=== PATIENT | male | born 1955 | race Caucasian/White ===

== ENCOUNTER 2018-11-29 20:23 | Outpatient (REF) | payer MEDICAID, SELFPAY ==
[2018-11-29 21:28] LABS: Abs Immature Grans 0.02 k/cumm (0.0-0.09); Absolute Basophil Count 0.04 k/cumm (0.0-0.2); Absolute Eosinophil Count 1.49 k/cumm (0.0-0.7); Absolute Lymphocyte Count 1.12 k/cumm (1.2-3.4); Absolute Monocyte Count 0.65 k/cumm (0.11-0.7); Absolute Neutrophil Count 4.54 k/cumm (1.2-6.7); Basophils % 0.5; HCT 31.7 % (40.0-50.0); HGB 10.2 g/dL (13.5-17.5); Immature Grans % 0.3; Lymphocytes % 14.2; Mean Corp. HGB Concentration 32.2 g/dL (32.0-36.0); Mean Corpuscular Hemoglobin 26.8 pg (27.0-33.0); Mean Corpuscular Volume 83.4 fL (80-95); Mean Platelet Volume 10.9 fL (8.0-11.0); Monocytes % 8.3; Neutrophils % 57.7; Platelet Count 279 x1000/uL (130-400); RBC Distribution Width 14.7 % (11.8-14.1); White Blood Cell Count 7.86 k/cumm (4.4-10.8)
[2018-11-29 21:35] LABS: Hemoglobin A1C 8.1 % (4.5-6.2)
[2018-11-29 21:42] LABS: ALT 23 U/L (12-78); AST 22 U/L (15-37); Albumin 2.7 g/dL (3.4-5.0); Alkaline Phosphatase 143 U/L (46-116); Anion Gap 7.8 mmol/L (3-11); BUN 34 mg/dL (7-18); Bilirubin, Total 0.2 mg/dL (0.2-1.0); CO2 24.2 mmol/L (21.0-32.0); Calcium 8.8 mg/dL (8.5-10.1); Chloride 103 mmol/L (98-107); Cholesterol 173 mg/dL (50-200); Estimated GFR 17.72 (mL/min/1.73m2); Glucose 332 mg/dL (70-100); HDL Cholesterol 51 mg/dL (40-60); LDL CHOLESTEROL 91 mg/dL (<100); Potassium 5.8 mmol/L (3.5-5.1); Sodium 135 mmol/L (136-145); TSH (W/Ref FT4) 7.57 uIU/mL (0.358-3.74); Total Protein 5.8 g/dL (6.4-8.2); Triglyceride 139 mg/dL (30-150)
[2018-11-29 21:49] LABS: CREATININE 3.51 mg/dL (0.70-1.30)
[2018-11-29 22:07] LABS: FREE T4 1.13 ng/dL (0.76-1.46)
[2018-11-29 22:53] LABS: Diff Comment Diff Reviewed
[2018-11-29 22:54] LABS: RBC Morphology Normal
== END 2018-11-29 20:43 ==
LOC: NCHCN 20:23
PROVIDERS: PCP Internal Medicine; Visit Provider Family Medicine
DX: M62.541 Muscle wasting and atrophy, not elsewhere classified, right hand (principal); R21 Rash and other nonspecific skin eruption; R06.09 Other forms of dyspnea; E11.65 Type 2 diabetes mellitus with hyperglycemia; M62.81 Muscle weakness (generalized)
CPT/HCPCS: 80053; 80061; 83721; 83036; 84439; 84443; 85025

== ENCOUNTER 2019-03-11 14:47 | Outpatient (REF) | payer MEDICAID, SELFPAY ==
[2019-03-11 21:23] LABS: Abs Immature Grans 0.04 k/cumm (0.0-0.09); Absolute Basophil Count 0.02 k/cumm (0.0-0.2); Absolute Eosinophil Count 1.93 k/cumm (0.0-0.7); Absolute Lymphocyte Count 0.88 k/cumm (1.2-3.4); Absolute Monocyte Count 0.62 k/cumm (0.11-0.7); Absolute Neutrophil Count 6.93 k/cumm (1.2-6.7); Basophils % 0.2; Eosinophils % 18.5; HCT 27.3 % (40.0-50.0); HGB 8.5 g/dL (13.5-17.5); Immature Grans % 0.4; Lymphocytes % 8.4; Mean Corp. HGB Concentration 31.1 g/dL (32.0-36.0); Mean Corpuscular Hemoglobin 26.3 pg (27.0-33.0); Mean Corpuscular Volume 84.5 fL (80-95); Mean Platelet Volume 9.9 fL (8.0-11.0); Neutrophils % 66.5; Platelet Count 357 x1000/uL (130-400); RBC 3.23 m/cumm (4.50-6.00); RBC Distribution Width 14.4 % (11.8-14.1); White Blood Cell Count 10.42 k/cumm (4.4-10.8)
[2019-03-11 21:33] LABS: ALT 14 U/L (16-63); AST 18 U/L (15-37); Alkaline Phosphatase 131 U/L (46-116); Anion Gap 11.7 mmol/L (3-11); BUN 38 mg/dL (7-18); Bilirubin, Total 0.1 mg/dL (0.2-1.0); CO2 20.3 mmol/L (21.0-32.0); Calcium 8.3 mg/dL (8.5-10.1); Chloride 108 mmol/L (98-107); Glucose 216 mg/dL (70-100); Potassium 5.7 mmol/L (3.5-5.1); Sodium 140 mmol/L (136-145); Total Protein 5.4 g/dL (6.4-8.2)
[2019-03-11 21:35] LABS: Estimated GFR 17.78 (mL/min/1.73m2)
[2019-03-11 21:58] LABS: Diff Comment Agrees w/ Instrument
[2019-03-11 21:59] LABS: Basophilic Stippling Present; Hypochromasia 1+; Polychromasia Present
[2019-03-12 12:41] LABS: Reticulocyte 1.7 % (0.5-2.4)
[2019-03-13 15:45] LABS: Erythropoietin 13.7 mIU/mL (2.6 - 18.5)
== END 2019-03-11 15:07 ==
LOC: NCHCN 14:47
PROVIDERS: PCP Internal Medicine; Visit Provider Specialist/Technologist Athletic Trainer
DX: D64.9 Anemia, unspecified (principal); E11.65 Type 2 diabetes mellitus with hyperglycemia; I10 Essential (primary) hypertension
CPT/HCPCS: 80053; 82668; 85025; 85045

== ENCOUNTER 2019-06-08 05:57 | Emergency (ER) | payer MEDICAID, SELFPAY ==
[2019-06-08] VITALS (56 sets, daily range): BP systolic 83–131; BP diastolic 49–73; PULSE 75–83; RESP 10–20; TEMP 37; O2SAT 96–100
[2019-06-08] MEDS: Normal Saline 1,000 ML 1000 ML IV (06:27)
[2019-06-08] MEDS: Ondansetron 4 MG/2 ML VIAL IVP (06:28)
[2019-06-08 06:32] LABS: Abs Immature Grans 0.05 k/cumm (0.0-0.09); Absolute Basophil Count 0.03 k/cumm (0.0-0.2); Absolute Eosinophil Count 0.44 k/cumm (0.0-0.7); Absolute Lymphocyte Count 1.07 k/cumm (1.2-3.4); Absolute Monocyte Count 0.77 k/cumm (0.11-0.7); Absolute Neutrophil Count 6.17 k/cumm (1.2-6.7); Basophils % 0.4; Eosinophils % 5.2; HGB 13.3 g/dL (13.5-17.5); Immature Grans % 0.6; Lymphocytes % 12.5; Mean Corp. HGB Concentration 30.9 g/dL (32.0-36.0); Mean Corpuscular Hemoglobin 28.3 pg (27.0-33.0); Mean Corpuscular Volume 91.5 fL (80-95); Neutrophils % 72.3; Platelet Count 303 x1000/uL (130-400); RBC Distribution Width 16.1 % (11.8-14.1); White Blood Cell Count 8.53 k/cumm (4.4-10.8)
[2019-06-08 06:46] LABS: ALT 23 U/L (16-63); AST 43 U/L (15-37); Albumin 2.7 g/dL (3.4-5.0); Alkaline Phosphatase 129 U/L (46-116); Anion Gap 9.4 mmol/L (3-11); BUN 15 mg/dL (7-18); Bilirubin, Total 0.3 mg/dL (0.2-1.0); CO2 29.6 mmol/L (21.0-32.0); Calcium 9.9 mg/dL (8.5-10.1); Chloride 100 mmol/L (98-107); Estimated GFR 21.24 (mL/min/1.73m2); Glucose 186 mg/dL (74-106); Lipase 207 U/L (73-393); Sodium 139 mmol/L (136-145); Total Protein 7.4 g/dL (6.4-8.2)
--- NOTE | 2019-06-08 07:05 | NUR.NOTE ---
Nursing Note: assumed primary care of this patient. first contact with this patient pt denies any needs at this time.
--- NOTE | 2019-06-08 07:17 | W.ED.GENAD ---
Discharge Plan Disposition Patient Disposition: HOME Condition: Stable Discharge Details Chief Complaint: Nausea/Vomit/Diar Clinical Impression: Vomiting and diarrhea Primary Care Provider: Stan Lopez ED Provider: Trisha Smyth Home Meds and New Rx's Prescriptions: Continued silver sulfadiazine [Silvadene] 1 % Cream 1 applic TOPICAL BID RF: 0 bupropion HCl [Wellbutrin SR] 150 mg Tablet Sustained-Release 12 Hr 150 mg PO DAILY RF: 0 metronidazole [Flagyl] 500 mg Tablet 500 mg PO TID RF: 0 levothyroxine 125 mcg Tablet 125 mcg PO DAILY RF: 0 ergocalciferol (vitamin D2) [Vitamin D2] 50,000 unit Capsule 50,000 unit PO DAILY RF: 0 levofloxacin [Levaquin] 750 mg Tablet 750 mg PO DAILY RF: 0 senna 8.6 mg Capsule 8.6 mg PO DAILY RF: 0 Levemir U-100 Insulin 100 unit/mL Solution 1 unit SUBCUT DIRECTED RF: 0 Januvia 25 mg Tablet 25 mg PO DAILY RF: 0 Eliquis 5 mg Tablet 5 mg PO BID RF: 0 Discharge Instructions Instructions: Acute Nausea and Vomiting (ED), Acute Diarrhea (ED) Additional Instructions: Drink plenty of fluids and get plenty of rest. Take the Compazine as needed directed for nausea and vomiting. Take Imodium sparingly if needed for persistent diarrhea otherwise you may have to let the diarrhea run its course. It is possible that the vomiting and diarrhea is due to the 2 antibiotics you are taking Levaquin and Flagyl for your foot osteomyelitis. You could consider taking probiotics or eating yogurt to help with the diarrhea. Follow-up with your primary care doctor within the next week for reevaluation. Return to the emergency department if you develop any worsening or new concerning symptoms. Discharge Data Discharge Date/Time-TO BE ENTERED AT DEPARTURE: 06/08/19 12:15 Discharge Physician: Trisha Smyth Medical Decision Making <Case Walters DO - Last Filed: 06/08/19 23:07> This is a 63-year-old male with a past medical history of renal failure, dialysis on Monday//Monday, history of diabetes, previous abdominal and ventral hernia surgeries, who presents today for evaluation of nausea and vomiting starting at 5 PM last night. Physical exam demonstrates an obese male with a firm ventral hernia which he states is unchanged. Relatively nontender. Abdomen exam is otherwise unremarkable. Patient is slightly hypotensive however paramedics from [facility] state they know him well and this is very common for him. No other significant abnormalities on exam. Differential is broad but includes pancreatitis, viral GI bug, or complication with ventral hernia. We will rehydrate, get CT scan to evaluate for acute process, and reassess. With no symptoms of chest pain, shortness of breath, tearing sensation in his chest, his signs and symptoms are inconsistent with an acute cardiac pathology. 7:27 AM Patient's updated med list that we are able to get from [facility] does demonstrate that he is on Levaquin, Flagyl, and Eliquis. <Trisha Smyth, - Last Filed: 06/08/19 15:10> 0800 --please see Dr. Walters's note for initial presentation and plan. 63-year-old male with a history of end-stage renal disease on dialysis, diabetes, hypertension, hyperlipidemia, left BKA who presented to the ED for vomiting, abdominal pain and diarrhea since yesterday. Had 2 episodes of vomiting which have been clear. Multiple episodes of watery brown diarrhea. He also admits to periumbilical abdominal pain since yesterday and a firm ventral abdominal mass which he states is chronic for 20 years but is more firm than usual since yesterday. Denies fever. Last received dialysis on and is due today. Case endorsed to follow-up on CT imaging. Labs reviewed and note a normal white blood cell count and electrolytes. Renal function at baseline. Lipase within normal limits. Patient had one low BP on arrival but has had stable vital since then. Patient has an approximately 9 x 12 cm indurated central abdominal mass without erythema, fluctuance or significant tenderness. Remainder of abdomen is soft and nondistended. 0840 --CT report notes a periumbilical anterior abdominal wall fluid collection with a well-defined wall measuring 9 x 14 x 1 which appears chronic. There is also a soft tissue density extending from the rectum through coccyx sacrum and lumbar spine which is concerning for fistula or abscess. No small bowel obstruction. Patient has diffuse skin breakdown extending from lumbar spine to proximal thighs posteriorly with areas of excoriation but no obvious open tract or drainage noted. There does not seem to be any significant erythema consistent with cellulitis. Rectal exam notes normal rectal tone with watery brown stool. 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 Case discussed with Dr. Melendez - She reviewed the CT and does note a large fluid collection posteriorly extending from the rectum to spine. She recommends further evaluation by [facility] surgery due to patient's chronic medical problems and need for dialysis. 1010 --Case discussed with [facility] general surgery who reviewed CT images -do not see any indication for surgical intervention of rectal fluid collection. States that if it was an abscess, patient likely would not have been able to tolerate the digital exam. 1045 -- Patient had 2 readings of low BP 80s/40s again after fluids. Case discussed with hospitalist from [facility], but at this time BP improved and discussion with general surgery and hospitalist agreed that in setting of normal labs and fluid responsive BP, may be due to diarrhea. Suspect vomiting and diarrhea may be due to his Levaquin and Flagyl which she is taking for his right heel osteomyelitis. Right heel wound inspected and does not appear acutely infected. His right leg Unna boot dressing was replaced here. Patient had minimal stooling here in ED but no significant diarrhea to obtain stool sample. Case discussed with and she feels comfortable with patient going home. We will send patient to dialysis for 12 PM today. is advised that if patient develops any worsening or new concerning symptoms, he should return immediately to the emergency department. Patient requested dose of Imodium here for his diarrhea. He was advised to limit Imodium at home and to let the diarrhea run its course. We will send home with a few tablets of Zofran to use as needed. HPI <Case Walters DO - Last Filed: 06/08/19 23:07> General Date/Time Provider Initiated Documentation: 06/08/19 05:58. HPI Narrative: This is a 63-year-old male who is a notably poor historian with past medical history of chronic renal failure, diabetes, previous abdominal hernia and surgeries, dialysis on Monday//Monday, who presents by [facility] for evaluation of diarrhea and vomiting. Patient states that starting at 5 PM this evening he has had mild abdominal nausea achiness, in conjunction with 1 or 2 episodes of diarrhea and 2 episodes of vomiting. He denies any chest pain, fever, chills. He denies any other sick contacts. He denies any aggravating or relieving factors. He does state that he thinks he may be on an antibiotic, but does not know what it is. He denies any other complaints or modifying factors. Related Data Home Medications Medication Instructions Recorded Confirmed Eliquis 5 mg PO BID 06/08/19 06/08/19 Januvia 25 mg PO DAILY 06/08/19 06/08/19 Levemir U-100 Insulin 1 unit SUBCUT DIRECTED 06/08/19 06/08/19 bupropion HCl [Wellbutrin SR] 150 mg PO DAILY 06/08/19 06/08/19 ergocalciferol (vitamin D2) 50,000 unit PO DAILY 06/08/19 06/08/19 [Vitamin D2] levofloxacin [Levaquin] 750 mg PO DAILY 06/08/19 06/08/19 levothyroxine 125 mcg PO DAILY 06/08/19 06/08/19 metronidazole [Flagyl] 500 mg PO TID 06/08/19 06/08/19 senna 8.6 mg PO DAILY 06/08/19 06/08/19 silver sulfadiazine [Silvadene] 1 applic TOPICAL BID 06/08/19 06/08/19 Allergies Allergy/AdvReac Type Severity Reaction Status Date / Time pravastatin Allergy Intermediate Myalgias Unverified 06/08/19 07:36 General Stated Complaint: Nausea/Vomit/Diar DANIELE: 3 Review of Systems <Case Walters DO - Last Filed: 06/08/19 23:07> All systems reviewed & are unremarkable except as noted in HPI and below PFSH <Case Walters DO - Last Filed: 06/08/19 23:07> Social History Smoking/Tobacco Use Status: Current every day Drug use: Never Do you feel safe at home: Yes Exam <Case Walters DO - Last Filed: 06/08/19 23:07> Narrative Exam Narrative: 1.Const: appearing stated age 2.Eyes: PERRL, no conjunctival injection, and symmetrical lids. 3.ENT: Atraumatic external nose and ears. dry MM. Neck: Symmetric, trachea midline, No thyromegaly. 4.CVS: +S1/S2, No murmurs or gallops. Peripheral pulses 2+ and equal in all extremities. Brisk capillary refill in all extremities. 5.RESP: Unlabored respiratory effort. Clear to auscultation bilaterally. No wheezes rales or rhonchi 6.GI: Diffuse large abdomen, central firm hernia in the ventral aspect is present. Nontender on palpation though. Mild generalized achiness throughout. Patient is stooled on. No redness, no warmth. 7.MSK: Left lower extremity amputation. No evidence of trauma. No other abnormality. 8.Skin: Warm, Dry. No rashes or lesions. 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 Sensation grossly intact, no focal neurologic deficits. 10.Psych: (AAO) x3. Appropriate mood and affect Course <Case Walters DO - Last Filed: 06/08/19 23:07> Vital Signs Vital signs: Vital Signs Temperature 37.0 C 06/08/19 06:20 Pulse 77 06/08/19 06:20 Respiratory Rate 18 06/08/19 06:20 Blood Pressure 84/54 L 06/08/19 06:20 Pulse Oximetry 98 06/08/19 06:20 Temperature 37.0 C 06/08/19 06:20 Temperature Source Temporal Artery Scan 06/08/19 06:20 Pulse 75 06/08/19 07:06 Pulse 80 06/08/19 07:10 Respiratory Rate 16 06/08/19 07:10 Respiratory Effort 06/08/19 06:20 Blood Pressure 112/66 06/08/19 07:06 Blood Pressure Mean 78 06/08/19 07:06 Pulse Oximetry 100 06/08/19 07:10 Oxygen Delivery Method Room Air 06/08/19 06:20 Oxygen Flow Rate 0 06/08/19 06:20 Pain Level 3 06/08/19 06:20 Lab/Test Results Lab/Test Results: Laboratory Tests Range/Units 06/08/19 06/08/19 06:20 06:20 WBC (4.4-10.8) k/cumm 8.53 RBC (4.50-6.00) m/cumm 4.70 Hgb (13.5-17.5) g/dL 13.3 L Hct (40.0-50.0) % 43.0 MCV (80-95) fL 91.5 MCH (27.0-33.0) pg 28.3 MCHC (32.0-36.0) g/dL 30.9 L RDW (11.8-14.1) % 16.1 H Plt Count (130-400) x1000/uL 303 MPV (8.0-11.0) fL 10.0 Immature Gran % 0.6 Neutrophils % 72.3 Lymphocytes % 12.5 Monocytes % 9.0 Eosinophils % 5.2 Basophils % 0.4 Absolute Neutrophils (1.2-6.7) k/cumm 6.17 Absolute Lymphocytes (1.2-3.4) k/cumm 1.07 L Absolute Monocytes (0.11-0.7) k/cumm 0.77 H Absolute Eosinophils (0.0-0.7) k/cumm 0.44 Absolute Basophils (0.0-0.2) k/cumm 0.03 Sodium (136-145) mmol/L 139 Potassium (3.5-5.1) mmol/L 4.0 Chloride (98-107) mmol/L 100 Carbon Dioxide (21.0-32.0) mmol/L 29.6 Anion Gap (3-11) mmol/L 9.4 BUN (7-18) mg/dL 15 Creatinine (0.70-1.30) mg/dL 3.00 H Estimated GFR/1.73 m2 (mL/min/1.73m2) 21.24 Glucose (74-106) mg/dL 186 H Calcium (8.5-10.1) mg/dL 9.9 Total Bilirubin (0.2-1.0) mg/dL 0.3 AST (15-37) U/L 43 H ALT (16-63) U/L 23 Alkaline Phosphatase (46-116) U/L 129 H Total Protein (6.4-8.2) g/dL 7.4 Albumin (3.4-5.0) g/dL 2.7 L Lipase (73-393) U/L 207 Sign Out <Case Walters DO - Last Filed: 06/08/19 23:07> Sign Out Data: Sign Out Comment: Pending CT scan results reassessment and disposition Last updated by Case Walters DO at 06/08/19 08:17
[2019-06-08] MEDS: Omnipaque 350 MG/ML 100 ML BTL IJ (07:27)
--- NOTE | 2019-06-08 07:35 | DI.CT_ITS ---
EXAM: CT ABDOMEN PELVIS W CLINICAL HISTORY: vomiting, tense hernia, cant tolerate PO TECHNIQUE: 100 cc Omnipaque 350 IV. COMPARISON: LEFT RIBS TO INCLUDE CXR from 06/16/2014 FINDINGS: There is a moderate size right pleural effusion and adjacent mild left basilar atelectasis. Pleural calcifications are seen. There is mild bilateral gynecomastia. The heart size is normal. There is no pericardial effusion. There is some fluid in the lower esophagus. There is no abnormal gastric distension. Anastomotic sutures are seen in the distal small bowel. The appendix appears normal. T here is mild nonspecific small bowel dilatation. Some fluid is seen in the colon. There is no abnor mal colonic distension. The liver, spleen and adrenals are unremarkable. The pancreas is mildly atr ophic. There is a small amount of sludge or stones in the gallbladder. There is no gallbladder wall thickening, or abnormal distension. There is an atrophic right kidney. 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 The left kidney shows mild atrophy. There is no evidence of hydronephrosis. The urinary bladder is nearly empty. There is a question of mild bladder wall thickening. There is hardware in the pubic symphysis related to previous fracture. There is also some deformity of the region of the right SI joint. There is an old-appearing fracture of L3. In the paraumbilical region, in the subc utaneous fat, there is a rounded collection with a thick wall and some calcifications. It measures 9 by 14 by 12 cm. There is a smaller right-sided collection showing peripheral calcification. There is no evidence of an abdominal wall hernia. Within the mesentery, there is a peripherally calcified low-density lesion. There is an irregular collection in the posterior subcutaneous fat, posterior to the lower lumbar spine and sacrum. There is apparent connection with the lower rectum. It measures 6.5 x 3.1 x 10.6 cm. There is marked thickening of the wall. The findings could represent an absces s collection with connection to the rectum. There is no visible extension in into the spine. An donna tional fluid collection is seen adjacent to the right greater trochanter which also shows thick wall and calcification and has a chronic appearance. IMPRESSION: 1. 9 x 14 x 12 centimeter collection within the Periumbilical subcutaneous fat which could represent an abscess versus chronic collection. There is no evidence of a hernia or bowel obstruction. 2. Retro lumbar subcutaneous collection with thick enhancing wall in connection with the rectum, mariana picious for abscess. 3. Chronic appearing low-density collection near the right greater trochanter.
--- NOTE | 2019-06-08 08:25 | DI.VRAD_ITS ---
PROCEDURE INFORMATION: Exam: CT Abdomen And Pelvis With Contrast Exam date and time: 06/08/2019 7:24 AM Age: 63 years old Clinical history: Patient HX: Vomiting, tense hernia. TECHNIQUE: Imaging protocol: Computed tomography of the abdomen and pelvis with intravenous contrast. Radiation optimization: All CT scans at this facility use at least one of these dose optimization techniques: automated exposure control; mA and/or kV adjustment per patient size (includes targeted exams where dose is matched to clinical indication); or iterative reconstruction. Contrast material: OMNIPAQUE 350; Contrast volume: 100 ml; Contrast route: IV; COMPARISON: CR - LEFT RIBS TO INCLUDE CXR 06/16/2014 11:33:42 AM FINDINGS: Mediastinum: There is fluid within the esophagus. There is a moderate left pleural effusion. Respiratory motion significantly limits evaluation of the lungs. There is bibasilar atelectasis and/or scarring. There is atelectasis adjacent to the left lower lung pleural effusion some of which demonstrate calcification which may be indicative of chronic changes and/or chronic aspiration. Partially visualized catheter within the lower SVC. Liver: Unremarkable. No mass. Gallbladder and bile ducts: No ductal dilatation. Hyperdensity is seen at the gallbladder neck which may represent sludge and/or stones. Pancreas: Unremarkable. No ductal dilation. Spleen: Unremarkable. No splenomegaly. Adrenals: Unremarkable. No mass. Kidneys and ureters: Atrophic right kidney with a 4 mm pelvic stone. Left kidney and ureter are unremarkable. Stomach and bowel: No bowel obstruction. Postsurgical changes of the bowel are seen within the right lower quadrant, likely prior primary anastomosis. There is fluid filling nondilated small bowel. Fluid is seen in the esophagus. There is a well calcified soft tissue mass within the central mesenteric fat with more central fat density and completely calcified wall, likely sequelae of chronic process. Appendix: Likely surgically absent. No secondary findings of appendicitis. Intraperitoneal space: No free air. Vasculature: Mild atherosclerotic calcification of the aorta and its major branches. Lymph nodes: Unremarkable. No enlarged lymph nodes. Bladder: The urinary bladder is somewhat decompressed, making the thickness of the wall difficult to evaluate; however, there may be some mild urinary bladder wall thickening. Reproductive: Calcifications within the prostate. Bones/joints: Extensive fixation metallic hardware at the pubis symphysis limits evaluation of the lower pelvis with metallic artifact. Degenerative changes of the bilateral hips and spine. L3 compression fracture deformity with greater than 50% height loss, age indeterminate. Soft tissues: There is a periumbilical anterior abdominal wall fluid collection with a well-defined wall measuring 9.1 x 14 x 1.2 cm with some of the wall demonstrating calcification which may be indicative of chronicity. There are foci of fat that are non-dependent within the collection. Adjacent to this collection there is a another smaller 2 cm fluid collection with calcified wall, again likely chronic. There is significant abdominal muscular atrophy. Soft tissue density extends from the rectum to the right of the coccyx which then ascends posterior to the sacrum and lumbar spine communicating with a thick walled fluid collection measuring 6.5 x 3.1 x 10.6 cm, concerning for fistulous communication and retrocecal/retro-lumbar subcutaneous abscess. Other findings: Fluid collection lateral to the right greater trochanter with wall calcification, likely sequelae related to chronic trochanteric bursitis. IMPRESSION: 1. No bowel obstruction. Fluid filled small bowel which can be seen with enteritis. 2. Fluid-filled esophagus, moderate left pleural effusion, and adjacent atelectasis demonstrating punctate calcification. Correlate for aspiration. 3. Multiple subcutaneous fluid collections with alejandre containing calcification, all likely chronic. Anterior abdominal wall fluid collection contains foci of fat and measures up to 14 cm. Recommend correlation with prior imaging if available. 4. Retro-lumbar subcutaneous organized fluid collection measuring approximately 10.6 cm in length which communicates with a soft tissue tract recommend followed to the rectum, recommend clinical correlation to exclude rectal fistula. 5. Chronic right trochanteric bursitis. 6. Likely other chronic sequelae or postsurgical changes within the abdomen. 7. The urinary bladder is somewhat decompressed and limits evaluation but there may be some asymmetrical wall thickening. Recommend clinical correlation. 8. Atrophic right kidney. Dictated and Authenticated by: Teddy Castanon MD. Ordering:LYN Willoughby MD
[2019-06-08] MEDS: Normal Saline 500 ML IV (10:37)
[2019-06-08] MEDS: Loperamide 2 MG CAP PO (11:39)
[2019-06-08] MEDS: Prochlorperazine 10 MG TAB 30 MG PO (11:40)
== END 2019-06-08 12:15 | disposition home or self-care (01) ==
PROVIDERS: Student in an Organized Health Care Education/Training Program; Emergency Provider Physician Assistant; PCP Internal Medicine
DX: R11.2 Nausea with vomiting, unspecified (principal); R19.7 Diarrhea, unspecified; R10.33 Periumbilical pain; E11.22 Type 2 diabetes mellitus with diabetic chronic kidney disease; I12.0 Hypertensive chronic kidney disease with stage 5 chronic kidney disease or end stage renal disease; N18.6 End stage renal disease; Z99.2 Dependence on renal dialysis; Z89.512 Acquired absence of left leg below knee
CPT/HCPCS: 36415; 80053; 83690; 96361; 96374; 99285; 74177; 85025; 99284; J2405; J3490

== ENCOUNTER 2020-03-26 13:05 | Emergency (ER) | payer MEDICARE, MEDICAID, SELFPAY ==
[2020-03-26 13:06] VITALS: BP 169/67; PULSE 84; RESP 20; TEMP 36.6; O2SAT 99
--- NOTE | 2020-03-26 13:15 | DI.CT_ITS ---
EXAM: CT HEAD WO CLINICAL HISTORY: seizure. TECHNIQUE: Imaging Protocol: Axial computed tomography images with coronal and sagittal reformatted images were created and reviewed COMPARISON: No exams were available for comparison FINDINGS: There is atrophy and ventricular dilatation somewhat disproportionate for the patient's age. There a re mild white matter changes of small vessel disease in a few small bilateral lacunar infarcts in the basal ganglia. No acute infarct is visible. There is no evidence of hemorrhage or mass. No skull fracture or sinus opacification is seen. The orbits are unremarkable. IMPRESSION: No acute intracranial process. RADIATION DOSE DELIVERED: Total DLP DATA REPOSITORY: All CT scans at this facility are submitted to the National Radiology Data Registry (NRDR) Dose Index Registry (DIR) with the [employer] (A[employer]). RADIATION OPTIMIZATION: All CT scans at this facility use at least one of these dose optimization te chniques: automated exposure control; mA and/or kV adjustment per patient size (includes targeted exa ms where dose is matched to clinical indication); or iterative reconstruction.
--- NOTE | 2020-03-26 13:25 | ED.GENADUL_ITS ---
Discharge Plan Disposition Patient Disposition: HOME Condition: Stable Discharge Details Clinical Impression: Pneumonia, Seizure-like activity Primary Care Provider: Jeyson Padgett ED Provider: Corby Bill Home Meds and New Rx's Prescriptions: New levofloxacin 750 mg tablet 750 mg PO DAILY Qty: 5 RF: 0 Continued lisinopril 5 mg tablet 40 mg PO DAILY RF: 0 atorvastatin 20 mg tablet 10 mg PO HS RF: 0 ferrous gluconate 324 mg (37.5 mg iron) Tablet 324 mg PO DAILY RF: 0 hydroxyzine HCl 25 mg Tablet 25 mg PO BID RF: 0 loratadine 10 mg Tablet 10 mg PO DAILY RF: 0 mirtazapine 15 mg Tablet 15 mg PO HS RF: 0 pantoprazole 40 mg Tablet,Delayed Release (Dr/Ec) 40 mg PO QAM RF: 0 camphor-menthol 0.5-0.5 % Lotion 1 applic TOPICAL TID RF: 0 sevelamer carbonate 800 mg Tablet 800 mg PO TID RF: 0 silver sulfadiazine [Silvadene] 1 % Cream 1 applic TOPICAL BID RF: 0 bupropion HCl [Wellbutrin SR] 150 mg Tablet Sustained-Release 12 Hr 150 mg PO DAILY RF: 0 levothyroxine 125 mcg Tablet 125 mcg PO QAM RF: 0 ergocalciferol (vitamin D2) [Vitamin D2] 50,000 unit Capsule 50,000 unit PO DAILY RF: 0 levofloxacin [Levaquin] 750 mg Tablet 750 mg PO DAILY RF: 0 senna 8.6 mg Capsule 8.6 mg PO BID RF: 0 Levemir U-100 Insulin 100 unit/mL Solution 10 unit SUBCUT QAM RF: 0 Januvia 25 mg Tablet 25 mg PO DAILY RF: 0 Eliquis 5 mg Tablet 5 mg PO BID RF: 0 Discharge Instructions Instructions: Pneumonia (ED) Additional Instructions: follow up with your primary care provider within 1 week for your pneumonia and seizure like activity if you feel more ill, severe pain, difficulty breathing return to the emergency department do not swim/bathe by yourself until cleared by your primary care provider Medical Decision Making 64 yo male with hx of esrd, htn, dm, prior right leg amputation, who comes in from dialysis when he had two episodes where his left arm flexed and he had lateral gaze one lasting one minute then the 2nd lasting 3 minutes. He doesn't remember having any seizure today and has no complaints now other than feeling general fatigue for a day. Denies chest pain, chest pressure, dyspnea, headaches, n/v. He has no focal deficits now, cn II-XII intact , soft nontender abdomen. Based on description suspect focal seizure, will evaluate for electrolyte abnormalities and ct of the head to evaluate for possible mass though unlikely given lack of headache. pt remains stable without symptoms here and feels well. ct head unremarkable and xray shows possible infiltrate on the left which could explain his weakness. He feels well and would like to try outpatient management. He understands importance of f/u with his pcp and return precautions given Differential Diagnosis Differential Diagnosis: seizure, electrolyte disorder Imaging Data Radiologic Study: Attestation: I personally reviewed and interpreted this imaging study as follows: Imaging: X-Ray Radiologist's impression: IMPRESSION: Left pleural effusion and question left lower lobe infiltrate. Radiologic Study #2: Attestation: I personally reviewed and interpreted this imaging study as follows: Imaging: CT Scan Radiologist's impression: no acute findings Lab Data Lab results reviewed: Yes I reviewed the patient's lab results. [facility] General Mode of arrival: ambulatory . Date/Time Provider Initiated Documentation: 03/26/20 13:12 . Limitations to Documentation: no limitations . Information obtained by: patient . History of Present Illness 64 year old M presents to the emergency department with the chief complaint of ?seizure, described as moderate, No relieving factors improve symptom(s), No exacerbating factors reported . Patient did receive the following treatments prior to arrival, none Related Data Home Medications Medication Instructions Recorded Confirmed Eliquis 5 mg PO BID 06/08/19 03/26/20 Januvia 25 mg PO DAILY 06/08/19 06/08/19 Levemir U-100 Insulin 10 unit SUBCUT QAM 06/08/19 03/26/20 bupropion HCl [Wellbutrin SR] 150 mg PO DAILY 06/08/19 03/26/20 ergocalciferol (vitamin D2) 50,000 unit PO DAILY 06/08/19 09/12/19 [Vitamin D2] levofloxacin [Levaquin] 750 mg PO DAILY 06/08/19 06/08/19 levothyroxine 125 mcg PO QAM 06/08/19 03/26/20 senna 8.6 mg PO BID 06/08/19 03/26/20 silver sulfadiazine [Silvadene] 1 applic TOPICAL BID 06/08/19 03/26/20 lisinopril 5 mg tablet 40 mg PO DAILY tab 09/10/19 03/26/20 atorvastatin 10 mg PO HS 03/26/20 03/26/20 camphor-menthol 1 applic TOPICAL TID 03/26/20 03/26/20 ferrous gluconate 324 mg PO DAILY 03/26/20 03/26/20 hydroxyzine HCl 25 mg PO BID 03/26/20 03/26/20 levofloxacin 750 mg PO DAILY #5 tab 03/26/20 loratadine 10 mg PO DAILY 03/26/20 03/26/20 mirtazapine 15 mg PO HS 03/26/20 03/26/20 pantoprazole 40 mg PO QAM 03/26/20 03/26/20 sevelamer carbonate 800 mg PO TID 03/26/20 03/26/20 Previous Rx's Medication Instructions Recorded levofloxacin 750 mg PO DAILY #5 tab 03/26/20 Allergies Allergy/AdvReac Type Severity Reaction Status Date / Time pravastatin Allergy Intermediate Myalgias Unverified 03/26/20 13:15 General Stated Complaint: Seizure DANIELE: 3 Review of Systems All systems reviewed & are unremarkable except as noted in HPI and below Constitutional Constitutional: Denies chills and Denies fever(s) Cardiovascular Cardiovascular: Denies chest pain and Denies dyspnea Respiratory Respiratory: Denies cough and Denies dyspnea Gastrointestinal Gastrointestinal: Denies abdominal pain, Denies nausea and Denies vomiting Musculoskeletal Musculoskeletal: Denies joint swelling [facility] Medical History (Updated 03/26/20 @ 15:04 by Corby Bill MD) Amputation below knee Anemia Candidiasis of skin Cellulitis of lower limb CHF (congestive heart failure) CKD (chronic kidney disease) Degeneration of cervical intervertebral disc Depressive disorder Diarrhea End stage renal disease GERD (gastroesophageal reflux disease) HLD (hyperlipidemia) Hypertension Neuropathy Retention of urine Stasis dermatitis of lower extremity due to chronic peripheral vascular hypertension Type 2 diabetes mellitus Unilateral traumatic amputation of leg below knee with complication Surgical History (Updated 06/24/19 @ 13:06 by Ghada Guillen) History of thoracentesis Status post debridement Social History Smoking/Tobacco Use Status: Current every day Tobacco Type: e-cigarettes Alcohol Intake: former Drug use: Never Do you feel safe at home: Yes Do you feel safe in your relationship?: Yes Exam Const General: no acute distress Orientation: alert HENMT Head: normal to inspection Ears: external ears normal General nose exam: external nose normal Mouth: moist mucous membranes Eyes General: appearance normal, both eyes and all related structures Neck Neck: normal visual inspection Resp Effort & Inspection: normal respiratory effort and able to speak in complete sentences Cardio Rate: regular rate Skin General skin exam: no atrophy Neuro General: patient alert and patient oriented x3 Extrem General: normal to inspection Psych Mental Status: mental status grossly normal Course Vital Signs Vital signs: Vital Signs Temperature 36.6 C 03/26/20 13:06 Pulse 84 03/26/20 13:06 Respiratory Rate 20 03/26/20 13:06 Blood Pressure 169/67 H 03/26/20 13:06 Pulse Oximetry 99 03/26/20 13:06 Temperature 36.6 C 03/26/20 13:06 Temperature Source Skin 03/26/20 13:06 Pulse 84 03/26/20 13:06 Respiratory Rate 20 03/26/20 13:06 Respiratory Effort 03/26/20 13:13 Blood Pressure 169/67 H 03/26/20 13:06 Blood Pressure Position Supine 03/26/20 13:06 Pulse Oximetry 99 03/26/20 13:06 Oxygen Delivery Method Nasal Cannula 03/26/20 13:06 Oxygen Flow Rate 2 03/26/20 13:06 Pain Level 0 03/26/20 13:06
[2020-03-26 13:50] LABS: Abs Immature Grans 0.39 10^3/uL (0.0-0.06); HCT 34.7 % (40.0-50.0); Immature Grans % 2.2; MCH 26.5 pg (27.0-33.0); MCHC 28.8 % (32.0-36.0); MPV 8.7 fL (8.0-11.0); Nucleated RBC 0 %; Platelet Count 309 10^3/uL (130-400); RBC 3.77 10^6/uL (4.36-5.78); RDW 20.4 % (11.8-14.1); RDW-SD 67.7 fL; WBC 17.35 10^3/uL (4.4-10.8)
[2020-03-26 14:02] LABS: ALT 9 U/L (16-63); AST 18 U/L (15-37); Albumin 1.9 g/dL (3.4-5.0); Alkaline Phosphatase 128 U/L (46-116); Anion Gap 7.4 mmol/L (3-11); BUN 29 mg/dL (7-18); Bilirubin, Total 0.4 mg/dL (0.2-1.0); CO2 30.6 mmol/L (21.0-32.0); Calcium 8.1 mg/dL (8.5-10.1); Chloride 99 mmol/L (98-107); ETHANOL BLOOD 4.3 mg/dL (<3); Estimated GFR 13.33 (mL/min/1.73m2); Glucose 220 mg/dL (74-106); Lipase 53 U/L (73-393); Magnesium 1.7 mg/dL (1.8-2.4); Potassium 3.9 mmol/L (3.5-5.1); Sodium 137 mmol/L (136-145); Total Protein 6.2 g/dL (6.4-8.2)
[2020-03-26 14:05] LABS: CREATININE 4.48 mg/dL (0.70-1.30); INR 1.2 (0.9-1.1); PTT Activated 35.1 sec (21.0-31.4); Prothrombin Time 12.3 sec (9.3-11.0)
[2020-03-26 14:13] LABS: Absolute Lymphocyte Count 1.21 10^3/uL (1.2-3.4); Absolute Monocyte Count 0.69 10^3/uL (0.1-0.8); Absolute Neutrophil Count 12.84 10^3/uL (1.2-6.7); Diff Comment Manual Differential
[2020-03-26 14:14] LABS: Anisocytosis 1+; Polychromasia Present
--- NOTE | 2020-03-26 14:16 | DI.RAD_ITS ---
EXAM: XR CHEST 2V PA LATERAL CLINICAL HISTORY: weakness TECHNIQUE: 2D digital imaging was performed. COMPARISON: CR LEFT RIBS TO INCLUDE CXR from 06/16/[address] ABDOMEN PELVIS W from 06/08/[address] HEAD WO from 03/26/2020 FINDINGS: Heart size is normal. There is a small to moderate-sized left pleural effusion. A left pleural effu ananth was seen on the previous CT of the abdomen and pelvis. The right lung is clear. There is a que stion of a left lower lobe infiltrate. IMPRESSION: Left pleural effusion and question left lower lobe infiltrate. DATA REPOSITORY: RADIATION DOSE DELIVERED:
[2020-03-26] MEDS: levoFLOXacin 500 MG, levoFLOXacin 250 MG 750 MG PO (15:27)
[2020-03-26 15:28] VITALS: BP 141/55; PULSE 80; RESP 15; TEMP 36.6; O2SAT 100
== END 2020-03-26 16:30 | disposition home or self-care (01) ==
PROVIDERS: Emergency Provider Emergency Medicine; PCP Family Medicine
DX: J18.9 Pneumonia, unspecified organism (principal); R56.9 Unspecified convulsions; E11.22 Type 2 diabetes mellitus with diabetic chronic kidney disease; N18.6 End stage renal disease; Z99.2 Dependence on renal dialysis; I12.0 Hypertensive chronic kidney disease with stage 5 chronic kidney disease or end stage renal disease
CPT/HCPCS: 80053; 83690; 99284; 70450; 71046; 80320; 83735; 85025; 85610; 85730

== ENCOUNTER 2020-05-30 10:21 | Emergency (ER) | payer MEDICARE, MEDICAID, SELFPAY ==
[2020-05-30] VITALS (23 sets, daily range): BP systolic 160–187; BP diastolic 64–81; PULSE 79–83; RESP 13–17; TEMP 36.6–36.8; O2SAT 95–100
--- NOTE | 2020-05-30 10:28 | DI.CT_ITS ---
EXAM: CT HEAD CERVICAL SPINE WO COMPARISON: CT CT HEAD WO from 03/26/2020 FINDINGS: CT examination of the cervical spine was performed without contrast administration. There are degenerative changes of the cervical spine with multilevel disc space narrowing and promine nt hypertrophic changes of the vertebral endplates and facet joints at multiple levels. There is no evidence of acute cervical spine fracture or dislocation. Intervertebral disc spaces are well maintained. Tracheolaryngeal structures appear intact. No cervical mass or adenopathy. Noncontrast cranial CT was performed. There is moderate generalized cerebral atrophy. Mild patchy areas of decreased attenuation noted in periventricular white matter consistent with microvascular ischemic changes. Small right lacunar inf arct noted. No evidence of acute intracranial hemorrhage, mass effect, or midline shift. No calvarial fracture. The orbital and temporal bone structures appear intact. Visualized mastoid air cells and paranasal sinuses appear clear. IMPRESSION: No evidence of acute cervical spine injury. No evidence of acute intracranial injury. RADIATION DOSE DELIVERED: 1,580.57mGy.cm Total DLP 1,580.57mGy.cm Total DLP DATA REPOSITORY: All CT scans at this facility are submitted to the National Radiology Data Registry (NRDR) Dose Index Registry (DIR) with the [employer] ([employer]). RADIATION OPTIMIZATION: All CT scans at this facility use at least one of these dose optimization te chniques: automated exposure control; mA and/or kV adjustment per patient size (includes targeted exa ms where dose is matched to clinical indication); or iterative reconstruction.
--- NOTE | 2020-05-30 10:30 | RT.EKG_ITS ---
APPROVED REPORT Exam: Resting ECG Patient Location: E HR:82 bpm ECG Measurements Heart Rate 82 AXIS VT 278 P 41 QRSd 109 QRS -67 QT 435 T 30 QTc 507 Conclusion Sinus rhythm...normal P axis, V-rate 60- 99 Prolonged VT interval...VT >220, V-rate 50- 90 LAD, consider left anterior fascicular block...axis(240,-40), S>R II III aVF Prolonged QT interval...QTc >500mS Physician: EKG 10: 38 Rate 82, VT is prolonged at 278, QTc 507, QRS 109, no evidence of STEMI. No other significant abnorm ality.
--- NOTE | 2020-05-30 10:40 | W.ED.GENAD ---
Discharge Plan Disposition Patient Disposition: [facility] Condition: Stable Discharge Details Chief Complaint: AMS/LOC Clinical Impression: Encephalopathy, Hallucination, visual Primary Care Provider: Jeyson Padgett ED Provider: Case Walters Home Meds and New Rx's Prescriptions: No Action lisinopril 5 mg tablet 40 mg PO DAILY RF: 0 atorvastatin 20 mg tablet 10 mg PO HS RF: 0 ferrous gluconate 324 mg (37.5 mg iron) Tablet 324 mg PO DAILY RF: 0 hydroxyzine HCl 25 mg Tablet 25 mg PO BID RF: 0 loratadine 10 mg Tablet 10 mg PO DAILY RF: 0 mirtazapine 15 mg Tablet 15 mg PO HS RF: 0 pantoprazole 40 mg Tablet,Delayed Release (Dr/Ec) 40 mg PO QAM RF: 0 camphor-menthol 0.5-0.5 % Lotion 1 applic TOPICAL TID RF: 0 sevelamer carbonate 800 mg Tablet 800 mg PO TID RF: 0 levofloxacin 750 mg tablet 750 mg PO DAILY Qty: 5 RF: 0 docusate sodium [Stool Softener] 100 mg capsule 1 mg PO BID RF: 0 Triphrocaps 1 mg capsule 1 cap PO DAILY RF: 0 silver sulfadiazine [Silvadene] 1 % Cream 1 applic TOPICAL BID RF: 0 bupropion HCl [Wellbutrin SR] 150 mg Tablet Sustained-Release 12 Hr 150 mg PO DAILY RF: 0 levothyroxine 125 mcg Tablet 125 mcg PO QAM RF: 0 ergocalciferol (vitamin D2) [Vitamin D2] 50,000 unit Capsule 50,000 unit PO DAILY RF: 0 levofloxacin [Levaquin] 750 mg Tablet 750 mg PO DAILY RF: 0 senna 8.6 mg Capsule 8.6 mg PO BID RF: 0 Levemir U-100 Insulin 100 unit/mL Solution 10 unit SUBCUT QAM RF: 0 Januvia 25 mg Tablet 25 mg PO DAILY RF: 0 Eliquis 5 mg Tablet 5 mg PO BID RF: 0 Medical Decision Making 64-year-old male with a past medical history of renal failure on dialysis every Monday and Monday, chronic periumbilical hernia which has been present since 1990, a flutter on , hypertension, hypothyroidism, GERD, depression, high cholesterol, who presents today for evaluation of visual hallucinations. EMS and state that this morning he was confused, and was seeing multiple things that were not there. He denied any auditory hallucinations though. EMS states that this is atypical for him. Aside for the complaint of visual hallucinations he has no other complaints and is notably pleasant otherwise. Currently he is very tena about what he sees, but denies any apprehension or concern because of it. Review of records revealed that he was just recently at [facility], and discharged 3 days ago. At that time he was admitted out of concern for sepsis, temperature was 100.3, however blood cultures returned negative and no infectious etiology could be delineated. He had visual hallucinations at that time as well, but work-up aside for eosinophilia was otherwise unremarkable. He was discharged home without complications. MRI was also performed at [facility] and was unremarkable. No other complaints at this time. No other modifying factors. Physical exam shows no meningeal signs, no asterixis. Is not a candidate for lumbar puncture anyway as he is currently on Eliquis. He does show notable neurologic abnormality with the inability to perform [id number] appropriately, difficulty performing rapid alternating movements bilaterally. And he also does demonstrate clear visual hallucinations. He is afebrile today. Exam shows no meningeal signs, nontender abdomen, clear lungs, vital signs are stable. Per EMS the patient had falling, it is uncertain if he hit his head. With his blood thinner use we will get a CT scan of the head, or laboratory work-up, evaluate for various causes of encephalopathy, monitor closely and reassess. 12:30 PM Laboratory work-up is returned, no white count or bandemia. He still does have mild eosinophilia which she had at [facility]. ESR is elevated at 38, CRP is elevated at 5.95. Ammonia level normal, TSH normal, salicylate and acetaminophen level normal. He has not produced any urine here, as he normally does not produce urine. Creatinine is 5, electrolytes are thankfully stable. BUN is 28. CT scan negative for acute process. Uncertain as to what the exact cause of his encephalopathy is. Does not appear to be overtly infectious at this time. She has no signs of a peritoneal abdomen. We are unable to perform dialysis here, and as the patient is still notably confused and suffering from visual hallucinations I do feel that he is not stable for discharge. We will contact [facility] and he was just discharged 3 days ago from their facility. 1:18 PM I contacted [facility] and discussed the case with Dr. Penaloza and Dr. Rosario, they agree with the assessment and plan. I also do not see an indication for antibiotics at this time as there is no source of infection and no demonstration of sepsis. We will send a blood drug screen.. Patient will be transferred to [facility] for further management dialysis and continued monitoring. I have extensively reviewed the treatment plan with the patient. I have addressed all patient concerns at this time. I have also discussed the plan with the admitting physician and they agree with the current assessment and plan and have agreed to assume responsibility for the patient. All parties demonstrate verbal understanding and agreement with our assessment and plan at this time. I discussed the case with the patient's , answered all questions. She agrees with the plan. At time of transfer the patient was reassessed and continued to demonstrate current medical stability. No signs of acute respiratory distress requiring intubation, hemodynamic instability requiring pressor support, or rapidly declining mental status. The patient is stable for transport. EKG 10: 38 Rate 82, KS is prolonged at 278, QTc 507, QRS 109, no evidence of STEMI. No other significant abnormality. FINDINGS: Brain: Garrison-white matter differentiation is normal. There is no mass effect or midline shift. There is no intra-axial hemorrhage. There is mild to moderate burden of confluent and patchy foci of periventricular and subcortical white matter hypodensities which might reflect chronic microvascular ischemic disease in a patient of this age. There is parenchymal volume loss with compensatory dilatation of ventricles, sulci and basilar cisterns. There is no extra-axial fluid collection. Cerebral ventricles: No ventriculomegaly. Bones/joints: Unremarkable. No acute fracture. Paranasal sinuses: Visualized sinuses are unremarkable. No fluid levels. Mastoid air cells: Visualized mastoid air cells are well aerated. Soft tissues: Unremarkable. IMPRESSION: No acute intracranial abnormality. FINDINGS: Vertebrae: There is no acute fracture or subluxation. Craniocervical junction is normal. There is normal alignment. Vertebral body heights are maintained. Facets are normally located. The reconstruction images of the cervical spine in the sagittal and coronal reformats were not provided. Other bones/joints: Posterior elements are intact. Soft tissues: Unremarkable. Lungs: Lung apices are normal. Other findings: Intervertebral disc spaces are normal. IMPRESSION: 1. No acute fracture or dislocation. 2. No reconstruction images of the cervical spine were provided at the time of dictation. Addendum would be created if reconstructions were provided. Thank you for allowing us to participate in the care of your patient. Dictated and Authenticated by: Luis Eduardo Rodriguez DO 05/30/2020 11:49 AM Eastern Time ([place] & [place]) HPI General Date/Time Provider Initiated Documentation: 05/30/20 10:21. HPI Narrative: 64-year-old male with a past medical history of renal failure on dialysis every Monday and Monday, chronic periumbilical hernia which has been present since 1990, a flutter on Eliquis, hypertension, hypothyroidism, GERD, depression, high cholesterol, who presents today for evaluation of visual hallucinations. EMS and state that this morning he was confused, and was seeing multiple things that were not there. He denied any auditory hallucinations though. EMS states that this is atypical for him. Aside for the complaint of visual hallucinations he has no other complaints and is notably pleasant otherwise. Currently he is very tena about what he sees, but denies any apprehension or concern because of it. Review of records revealed that he was just recently at [facility], and discharged 3 days ago. At that time he was admitted out of concern for sepsis, temperature was 100.3, however blood cultures returned negative and no infectious etiology could be delineated. He had visual hallucinations at that time as well, but work-up aside for eosinophilia was otherwise unremarkable. He was discharged home without complications. MRI was also performed at [facility] and was unremarkable. No other complaints at this time. No other modifying factors. Related Data Home Medications Medication Instructions Recorded Confirmed Eliquis 5 mg PO BID 06/08/19 05/30/20 Januvia 25 mg PO DAILY 06/08/19 05/30/20 Levemir U-100 Insulin 10 unit SUBCUT QAM 06/08/19 05/30/20 bupropion HCl [Wellbutrin SR] 150 mg PO DAILY 06/08/19 05/30/20 ergocalciferol (vitamin D2) 50,000 unit PO DAILY 06/08/19 05/30/20 [Vitamin D2] levofloxacin [Levaquin] 750 mg PO DAILY 06/08/19 05/30/20 levothyroxine 125 mcg PO QAM 06/08/19 05/30/20 senna 8.6 mg PO BID 06/08/19 05/30/20 silver sulfadiazine [Silvadene] 1 applic TOPICAL BID 06/08/19 05/30/20 lisinopril 5 mg tablet 40 mg PO DAILY tab 09/10/19 05/30/20 atorvastatin 10 mg PO HS 03/26/20 05/30/20 camphor-menthol 1 applic TOPICAL TID 03/26/20 05/30/20 ferrous gluconate 324 mg PO DAILY 03/26/20 05/30/20 hydroxyzine HCl 25 mg PO BID 03/26/20 05/30/20 levofloxacin 750 mg PO DAILY #5 tab 03/26/20 05/30/20 loratadine 10 mg PO DAILY 03/26/20 05/30/20 mirtazapine 15 mg PO HS 03/26/20 05/30/20 pantoprazole 40 mg PO QAM 03/26/20 05/30/20 sevelamer carbonate 800 mg PO TID 03/26/20 05/30/20 B complex with C 20-folic acid 1 cap PO DAILY 05/30/20 05/30/20 [Triphrocaps] docusate sodium [Stool Softener] 1 mg PO BID 05/30/20 05/30/20 Previous Rx's Medication Instructions Recorded levofloxacin 750 mg PO DAILY #5 tab 03/26/20 Allergies Allergy/AdvReac Type Severity Reaction Status Date / Time pravastatin Allergy Intermediate Myalgias Unverified 05/30/20 10:34 General Stated Complaint: AMS/LOC DANIELE: 2 Review of Systems All systems reviewed & are unremarkable except as noted in HPI and below PFSH Medical History Amputation below knee Anemia Candidiasis of skin Cellulitis of lower limb CHF (congestive heart failure) CKD (chronic kidney disease) Degeneration of cervical intervertebral disc Depressive disorder Diarrhea End stage renal disease GERD (gastroesophageal reflux disease) HLD (hyperlipidemia) Hypertension Neuropathy Retention of urine Stasis dermatitis of lower extremity due to chronic peripheral vascular hypertension Type 2 diabetes mellitus Unilateral traumatic amputation of leg below knee with complication Surgical History History of thoracentesis Status post debridement Social History Smoking/Tobacco Use Status: Former Tobacco Use Smoking risk assessment performed?: Yes Alcohol Intake: former Drug use: Never Do you feel safe at home: Yes Do you feel safe in your relationship?: Yes Exam Narrative Exam Narrative: 1.Const: Well-nourished, Well-developed, appearing stated age 2.Eyes: PERRL, no conjunctival injection, and symmetrical lids. 3.ENT: Atraumatic external nose and ears. Moist MM. Neck: Symmetric, trachea midline, No thyromegaly. Patient demonstrates good movement of cervical neck. There is no nuchal rigidity, no nuchal tenderness. Patient is able to flex the neck without any difficulty or significant pain. . Patient demonstrates intact dentition with no signs of tooth avulsion or fracture, no signs of jaw deformity, no evidence of a LeFort's fracture, with an intact palate, nose and orbital region. There is no evidence of a nasal septal hematoma. No proptosis. Jaw closes symmetrically. Airway is clear. There is no evidence of raccoon eyes, isidro sign, CSF rhinorrhea, mastoid tenderness, cranial crepitus, hemotympanum, exophthalmos, or hyphema. 4.CVS: +S1/S2, No murmurs or gallops. Peripheral pulses 2+ and equal in all extremities. Brisk capillary refill in all extremities. 5.RESP: Unlabored respiratory effort. Clear to auscultation bilaterally. No wheezes rales or rhonchi 6.GI: Soft, Nontender/Nondistended, No hepatosplenomegaly. Chronic abdominal hernia, firm, nontender, not reducible, review of [facility] records indicate that this is unchanged. 7.MSK: Normocephalic/Atraumatic, amputation of the lower extremity, no signs of infection. 8.Skin: Warm, Dry. No rashes or lesions. 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 Sensation grossly intact, patient is unable to perform [id number] appropriately, he is also unable to perform symmetric rapid alternating movements. Unable to track my fingers for visual exam. 10.Psych: (AAO) x1. Slightly confused, notable visual hallucinations. He states he sees a tractor-trailer truck and a backhoe right neck source, he also believes I am a girl. I am not. Course Vital Signs Vital signs: Vital Signs Temperature 36.2 C L 05/30/20 10:26 Pulse 82 05/30/20 10:26 Respiratory Rate 16 05/30/20 10:26 Blood Pressure 165/64 H 05/30/20 10:26 Pulse Oximetry 97 05/30/20 10:26 Temperature 36.2 C L 05/30/20 10:26 Pulse 82 05/30/20 10:26 Respiratory Rate 16 05/30/20 10:26 Respiratory Effort Non-Labored 05/30/20 10:26 Blood Pressure 165/64 H 05/30/20 10:26 Blood Pressure Position Sitting 05/30/20 10:26 Pulse Oximetry 97 05/30/20 10:26 Oxygen Delivery Method Room Air 05/30/20 10:26 Oxygen Flow Rate 0 05/30/20 10:26 Pain Level 0 05/30/20 10:26 Lab/Test Results Lab/Test Results: 05/30/20 10:36 Blood Blood Culture - Pending 05/30/20 10:36 Blood Blood Culture - Pending
[2020-05-30 11:03] LABS: BE (Venous) 6 mmol/L (-2-3); HCO3 (Venous) 32 mmol/L (23-28); O2 Sat (Venous) 70 %; TCO2 (Venous) 29 mmol/L (24-29); pCO2 (Venous) 53 mmHg (41-51); pH (Venous) 7.38 (7.31-7.41); pO2 (Venous) 37 mmHg
[2020-05-30 11:04] LABS: Abs Immature Grans 0.03 10^3/uL (0.0-0.06); Absolute Basophil Count 0.04 10^3/uL (0.0-0.2); Absolute Eosinophil Count 2.79 10^3/uL (0.0-0.7); Absolute Lymphocyte Count 1.31 10^3/uL (1.2-3.4); Absolute Monocyte Count 0.85 10^3/uL (0.1-0.8); Absolute Neutrophil Count 4.78 10^3/uL (1.2-6.7); Basophils % 0.4; Eosinophils % 28.5; HGB 11.9 g/dL (13.5-17.5); Immature Grans % 0.3; Lymphocytes % 13.4; MCHC 29.8 % (32.0-36.0); MCV 90.9 fL (80-95); MPV 10.1 fL (8.0-11.0); Monocytes % 8.7; Neutrophils % 48.7; Nucleated RBC 0 %; Platelet Count 179 10^3/uL (130-400); RDW 15.7 % (11.8-14.1); RDW-SD 52.5 fL
[2020-05-30 11:05] LABS: Lactate 1.1 mmol/L (0.6-1.4)
[2020-05-30 11:17] LABS: INR 1.1 (0.9-1.1); PTT Activated 31.1 sec (21.0-27.5); Prothrombin Time 10.7 sec (9.3-11.0)
[2020-05-30 11:21] LABS: Anisocytosis 1+; Diff Comment Agrees w/ Instrument
[2020-05-30 11:27] LABS: Magnesium 2.1 mg/dL (1.8-2.4)
[2020-05-30 11:30] LABS: ALT 12 U/L (16-63); AST 22 U/L (15-37); Albumin 2.5 g/dL (3.4-5.0); Alkaline Phosphatase 164 U/L (46-116); Anion Gap 5.8 mmol/L (3-11); BUN 28 mg/dL (7-18); Bilirubin, Total 0.3 mg/dL (0.2-1.0); CO2 31.2 mmol/L (21.0-32.0); Calcium 8.7 mg/dL (8.5-10.1); Chloride 102 mmol/L (98-107); Estimated GFR 11.53 (mL/min/1.73m2); Glucose 181 mg/dL (74-106); Sodium 139 mmol/L (136-145); TSH (W/Ref FT4) 3.72 uIU/mL (0.36-3.74); Total Protein 6.5 g/dL (6.4-8.2)
[2020-05-30 11:37] LABS: Salicylate < 2.8 mg/dL (2.8-20.0)
[2020-05-30 11:39] LABS: Acetaminophen < 2 ug/mL (10-30); ESR 38 mm/hr (1-20)
[2020-05-30 11:40] LABS: C-Reactive Protein 5.95 mg/dL (0.0-0.3)
[2020-05-30 11:44] LABS: CREATININE 5.08 mg/dL (0.70-1.30)
[2020-05-30 11:45] LABS: ETHANOL BLOOD < 3.0 mg/dL (<3)
--- NOTE | 2020-05-30 11:49 | DI.VRAD_ITS ---
PROCEDURE INFORMATION: Exam: CT Head Without Contrast Exam date and time: 05/30/2020 10:58 AM Age: 64 years old Clinical indication: Injury or trauma; Fall; Concussion/head injury; Sprain or strain, cervical ligaments TECHNIQUE: Imaging protocol: Computed tomography of the head without contrast. COMPARISON: CT HEAD WO 03/26/2020 1:53 PM FINDINGS: Brain: Garrison-white matter differentiation is normal. There is no mass effect or midline shift. There is no intra-axial hemorrhage. There is mild to moderate burden of confluent and patchy foci of periventricular and subcortical white matter hypodensities which might reflect chronic microvascular ischemic disease in a patient of this age. There is parenchymal volume loss with compensatory dilatation of ventricles, sulci and basilar cisterns. There is no extra-axial fluid collection. Cerebral ventricles: No ventriculomegaly. Bones/joints: Unremarkable. No acute fracture. Paranasal sinuses: Visualized sinuses are unremarkable. No fluid levels. Mastoid air cells: Visualized mastoid air cells are well aerated. Soft tissues: Unremarkable. IMPRESSION: No acute intracranial abnormality. PROCEDURE INFORMATION: Exam: CT Cervical Spine Without Contrast Exam date and time: 05/30/2020 10:58 AM Age: 64 years old Clinical indication: Injury or trauma; Fall; Concussion/head injury; Sprain or strain, cervical ligaments TECHNIQUE: Imaging protocol: Computed tomography images of the cervical spine without contrast. COMPARISON: CT HEAD WO 03/26/2020 1:53 PM FINDINGS: Vertebrae: There is no acute fracture or subluxation. Craniocervical junction is normal. There is normal alignment. Vertebral body heights are maintained. Facets are normally located. The reconstruction images of the cervical spine in the sagittal and coronal reformats were not provided. Other bones/joints: Posterior elements are intact. Soft tissues: Unremarkable. Lungs: Lung apices are normal. Other findings: Intervertebral disc spaces are normal. IMPRESSION: 1. No acute fracture or dislocation. 2. No reconstruction images of the cervical spine were provided at the time of dictation. Addendum would be created if reconstructions were provided. Dictated and Authenticated by: Luis Eduardo Rodriguez MD. Ordering:LYN Willoughby MD
[2020-05-30 12:15] LABS: Ammonia < 10 umol/L (11-32)
[2020-06-09 12:22] LABS: Amphetamines Negative ng/mL (Cutoff: 20); Barbiturates Negative ng/mL (Cutoff: 50); Benzodiazepines Negative ng/mL (Cutoff: 50); Buprenorphine Negative ng/mL (Cutoff: 1); Cocaine Negative ng/mL (Cutoff: 20); Methadone Negative ng/mL (Cutoff: 25); Methamphetamine Negative ng/mL (Cutoff: 20); Opiates Negative ng/mL (Cutoff: 20); Phencyclidine Negative ng/mL (Cutoff: 10)
== END 2020-05-30 13:43 | disposition short-term general hospital (02) ==
PROVIDERS: Emergency Provider Student in an Organized Health Care Education/Training Program; PCP Family Medicine
DX: R44.1 Visual hallucinations (principal); G93.40 Encephalopathy, unspecified; R70.0 Elevated erythrocyte sedimentation rate; R79.82 Elevated C-reactive protein (CRP); I12.0 Hypertensive chronic kidney disease with stage 5 chronic kidney disease or end stage renal disease; N18.6 End stage renal disease; Z99.2 Dependence on renal dialysis; Z79.01 Long term (current) use of anticoagulants
CPT/HCPCS: 36415; 36416; 80053; 82805; 82962; 85652; 87040; 93005; 99285; 70450; 72125; 80307; 80320; 80329; 82140; 83605; 83735; 84443; 85025; 85610; 85730; 86140; 93010

== ENCOUNTER 2020-06-18 11:20 | Emergency (ER) | payer MEDICARE, MEDICAID, SELFPAY ==
[2020-06-18] VITALS (15 sets, daily range): BP systolic 164–197; BP diastolic 73–145; PULSE 88–92; RESP 15–24; TEMP 36.6; O2SAT 95–100
--- NOTE | 2020-06-18 11:30 | RT.EKG_ITS ---
APPROVED REPORT Exam: Resting ECG Patient Location: E HR:89 bpm ECG Measurements Heart Rate 89 AXIS WY 189 P 36 QRSd 97 QRS -41 QT 382 T 38 QTc 465 Conclusion Sinus rhythm...normal P axis, V-rate 60- 99 Left axis deviation...QRS axis (-30,-90)
--- NOTE | 2020-06-18 11:30 | DI.RAD_ITS ---
EXAM: XR PORTABLE CHEST AP CLINICAL HISTORY: Weakness, confusion. TECHNIQUE: 2D digital imaging was performed. COMPARISON: CR XR CHEST 2V PA LATERAL from 03/26/2020 FINDINGS: There chest leads in place. Heart size upper normal. The mediastinum is not widened. There are mil d increased markings in the left lower lobe retrocardiac region and slight blunting of left costophre kun angle probably indicating a small left pleural effusion. There is no pleural effusion on the opp osite-right side. No pulmonary edema. No pneumothorax. IMPRESSION: Mild increased markings left lower lobe. Small left pleural effusion. DATA REPOSITORY: RADIATION DOSE DELIVERED:
--- NOTE | 2020-06-18 11:38 | ED.GENADUL_ITS ---
Discharge Plan Disposition Patient Disposition: HOME Condition: Stable Discharge Details Clinical Impression: Weakness Primary Care Provider: Jeyson Padgett ED Provider: Nesha Pope Home Meds and New Rx's Prescriptions: Continued lisinopril 5 mg tablet 40 mg PO DAILY RF: 0 atorvastatin 20 mg tablet 40 mg PO HS RF: 0 ferrous gluconate 324 mg (37.5 mg iron) Tablet 324 mg PO DAILY RF: 0 hydroxyzine HCl 25 mg Tablet 25 mg PO BID RF: 0 loratadine 10 mg Tablet 10 mg PO DAILY RF: 0 mirtazapine 15 mg Tablet 15 mg PO HS RF: 0 pantoprazole 40 mg Tablet,Delayed Release (Dr/Ec) 40 mg PO QAM RF: 0 camphor-menthol 0.5-0.5 % Lotion 1 applic TOPICAL TID RF: 0 sevelamer carbonate 800 mg Tablet 800 mg PO TID RF: 0 docusate sodium [Stool Softener] 100 mg capsule 1 mg PO BID RF: 0 Triphrocaps 1 mg capsule 1 cap PO DAILY RF: 0 clotrimazole 1 % cream 1 applic TOPICAL DAILY RF: 0 silver sulfadiazine [Silvadene] 1 % Cream 1 applic TOPICAL BID RF: 0 bupropion HCl [Wellbutrin SR] 150 mg Tablet Sustained-Release 12 Hr 150 mg PO DAILY RF: 0 levothyroxine 125 mcg Tablet 125 mcg PO QAM RF: 0 ergocalciferol (vitamin D2) [Vitamin D2] 50,000 unit Capsule 50,000 unit PO DAILY RF: 0 senna 8.6 mg Capsule 8.6 mg PO BID RF: 0 Levemir U-100 Insulin 100 unit/mL Solution 10 unit SUBCUT QAM RF: 0 Eliquis 5 mg Tablet 5 mg PO BID RF: 0 Discharge Instructions Instructions: Weakness (ED) Additional Instructions: They cannot get into dialysis until 6:15 AM tomorrow morning. Follow up with primary care provider in 3-5 days. Return to ED sooner if any worsening or concerns. Increase oral fluids. At the time of your evaluation you are not having any hallucinations, your labs are largely at within baseline. You were given 500 mL of normal saline bolus. His sodium was a little bit low at a level of 135. Referrals: Jeyson Padgett [Primary Care Provider] - Discharge Data Discharge Date/Time-TO BE ENTERED AT DEPARTURE: 06/18/20 14:39 Medical Decision Making 64-year-old male presents to the ER with reports of visual hallucinations and increased weakness. On initial exam patient denies any visual hallucinations he is alert and oriented x2. He has confused to place. He states that she thinks that he is at [facility]. He does have a past medical history of end-stage renal disease, CHF, hypertension, type 2 diabetes, no lateral below the knee amputation. He was seen approximately 1 month ago and transferred to [facility] for similar complaints. Patient is due for dialysis today at approximately 12:30 PM. He does report that he has had diarrhea x24 hours. 1155: EKG was reviewed by Dr. Boo Urrutia MD ER attending, please see his official report. EXAM: XR PORTABLE CHEST AP CLINICAL HISTORY: Weakness, confusion. TECHNIQUE: 2D digital imaging was performed. COMPARISON: CR XR CHEST 2V PA LATERAL from 03/26/2020 FINDINGS: There chest leads in place. Heart size upper normal. The mediastinum is not widened. There are mild increased markings in the left lower lobe retrocardiac region and slight blunting of left costophrenic angle probably indicating a small left pleural effusion. There is no pleural effusion on the opposite-right side. No pulmonary edema. No pneumothorax. IMPRESSION: Mild increased markings left lower lobe. Small left pleural effusion. 1339: Call made to dialysis clinic regarding getting patient to dialysis today before he goes home. They are unable to get him in until 6:15 AM tomorrow morning. At this time I will discuss this with his family and arrange transportation back to his home. 1348: Transportation home via EMS will be arranged. Spoke with patient's Praveena and discussed plan of care, she verbalized understanding at this time. Medical Records Medical records reviewed: Yes I reviewed the patient's medical records. Medical records narrative: Discharge summary from [facility] was obtained from 06/05/2020. Patient was discharged home with home health care he was admitted for 6 days for acute encephalopathy, eosinophilia, end-stage renal disease, sacral pressure wounds and altered mental status. During his stay he did have an MRI/MRA which showed recent lacunar right thalamus infarct. He was discharged at baseline mental status. HPI General Mode of arrival: EMS . Date/Time Provider Initiated Documentation: 06/18/20 11:25 . Limitations to Documentation: altered mental status and physical limitation . Information obtained by: EMS . HPI Narrative: 64-year-old male presents to the ER with reports of visual hallucinations and increased weakness. On initial exam patient denies any visual hallucinations he is alert and oriented x2. He has confused to place. He states that she thinks that he is at [facility]. He does have a past medical history of end-stage renal disease, CHF, hypertension, type 2 diabetes, no lateral below the knee amputation. He was seen approximately 1 month ago and transferred to [facility] for similar complaints. Patient is due for dialysis today at approximately 12:30 PM. He does report that he has had diarrhea x24 hours. Related Data Home Medications Medication Instructions Recorded Confirmed Eliquis 5 mg PO BID 06/08/19 06/18/20 Levemir U-100 Insulin 10 unit SUBCUT QAM 06/08/19 06/18/20 bupropion HCl [Wellbutrin SR] 150 mg PO DAILY 06/08/19 06/18/20 ergocalciferol (vitamin D2) 50,000 unit PO DAILY 06/08/19 05/30/20 [Vitamin D2] levothyroxine 125 mcg PO QAM 06/08/19 06/18/20 senna 8.6 mg PO BID 06/08/19 05/30/20 silver sulfadiazine [Silvadene] 1 applic TOPICAL BID 06/08/19 06/18/20 lisinopril 5 mg tablet 40 mg PO DAILY tab 09/10/19 06/18/20 atorvastatin 40 mg PO HS 03/26/20 06/18/20 camphor-menthol 1 applic TOPICAL TID 03/26/20 06/18/20 ferrous gluconate 324 mg PO DAILY 03/26/20 06/18/20 hydroxyzine HCl 25 mg PO BID 03/26/20 06/18/20 loratadine 10 mg PO DAILY 03/26/20 06/18/20 mirtazapine 15 mg PO HS 03/26/20 06/18/20 pantoprazole 40 mg PO QAM 03/26/20 06/18/20 sevelamer carbonate 800 mg PO TID 03/26/20 06/18/20 Triphrocaps 1 cap PO DAILY 05/30/20 06/18/20 docusate sodium [Stool Softener] 1 mg PO BID 05/30/20 06/18/20 clotrimazole 1 applic TOPICAL DAILY 06/18/20 06/18/20 Allergies Allergy/AdvReac Type Severity Reaction Status Date / Time pravastatin Allergy Intermediate Myalgias Unverified 06/18/20 11:47 General Stated Complaint: GenMedical DANIELE: 2 Review of Systems Narrative: Constitutional: Negative for weight loss, alert and oriented x 2, disheveled, incontinent of stool. Normal body habitus, appears comfortable. HEENT: Denies trauma, headaches, blurry vision, nasal discharge, sore throat, trouble swallowing. Chest: Denies chest pain, palpitations, irregular rhythm, hypertension. Respiratory: Denies Shortness of breath, cough, hemoptysis. GI: Denies abdominal pain, nausea, vomiting, constipation. Positive diarrhea. : Denies dysuria, hematuria, flank pain, rectal bleeding. End-stage renal disease, dialysis patient. Neuro: Denies dizziness, blurry vision, syncope, headache or facial numbness. Positive weakness. Hematologic: Denies easy bruising, intolerance to heat or cold, hair loss. [facility] Medical History Amputation below knee Anemia Candidiasis of skin Cellulitis of lower limb CHF (congestive heart failure) CKD (chronic kidney disease) Degeneration of cervical intervertebral disc Depressive disorder Diarrhea End stage renal disease GERD (gastroesophageal reflux disease) HLD (hyperlipidemia) Hypertension Neuropathy Retention of urine Stasis dermatitis of lower extremity due to chronic peripheral vascular hypertension Type 2 diabetes mellitus Unilateral traumatic amputation of leg below knee with complication Surgical History History of thoracentesis Status post debridement Social History Smoking/Tobacco Use Status: Former Tobacco Use Smoking risk assessment performed?: Yes Alcohol Intake: former Drug use: Never Do you feel safe at home: Yes Do you feel safe in your relationship?: Yes Exam Narrative Exam Narrative: Constitutional: Alert and oriented x2. Appears stated age. Normal body habitus. Head: Normocephalic, no trauma. Eyes: Pupils PERRLA, Red reflex noted, EOM's intact. Eyelids symmetrical without lesions, discharge, or swelling. ENT: Bilateral TM's WNL, External ear normal to inspection, no mastoid TTP, swelling, or erythema, Nasal turbinates WNL, no nasal discharge. Normal dentition, Posterior pharynx WNL, no exudate. Chest: RRR, Normal S1, S2, distal pulses intact. Resp: Lungs clear to auscultation bilaterally, no wheezes, rales, or rhonchi. Musculoskeletal: Left below the knee amputation. Skin: Fresh new skin breakdown noted to his buttock area, erythema. Capillary refill less than 2 sec. does have multiple scratches and excoriations noted. Neurologic: Cranial nerves II-XII intact. Alert and oriented x 3. Hematologic/Lymphatic: No ecchymosis, no lymphadenopathy. Course Vital Signs Vital signs: Vital Signs Temperature 36.6 C 06/18/20 11:28 Pulse 88 06/18/20 11:28 Respiratory Rate 20 06/18/20 11:28 Blood Pressure 164/77 H 06/18/20 11:28 Pulse Oximetry 98 06/18/20 11:28 Temperature 36.6 C 06/18/20 11:28 Temperature Source Temporal Artery Scan 06/18/20 11:28 Pulse 88 06/18/20 11:28 Respiratory Rate 20 06/18/20 11:28 Respiratory Effort Non-Labored 06/18/20 11:35 Blood Pressure 164/77 H 06/18/20 11:28 Blood Pressure Position Supine 06/18/20 11:28 Pulse Oximetry 98 06/18/20 11:28 Oxygen Delivery Method Room Air 06/18/20 11:28 Oxygen Flow Rate 0 06/18/20 11:28 Pain Level 6 06/18/20 11:28
[2020-06-18 12:16] LABS: Abs Immature Grans 0.04 10^3/uL (0.0-0.06); Absolute Basophil Count 0.02 10^3/uL (0.0-0.2); Absolute Eosinophil Count 0.67 10^3/uL (0.0-0.7); Absolute Lymphocyte Count 0.79 10^3/uL (1.2-3.4); Absolute Monocyte Count 0.68 10^3/uL (0.1-0.8); Absolute Neutrophil Count 4.87 10^3/uL (1.2-6.7); Basophils % 0.3; Eosinophils % 9.5; HGB 11.3 g/dL (13.5-17.5); Immature Grans % 0.6; Lymphocytes % 11.2; MCH 26.8 pg (27.0-33.0); MCHC 29.7 % (32.0-36.0); MPV 9.5 fL (8.0-11.0); Monocytes % 9.6; Neutrophils % 68.8; Nucleated RBC 0 %; Platelet Count 211 10^3/uL (130-400); RBC 4.22 10^6/uL (4.36-5.78); RDW 15.7 % (11.8-14.1); RDW-SD 51.9 fL; WBC 7.07 10^3/uL (4.4-10.8)
[2020-06-18 12:36] LABS: ALT 13 U/L (16-63); AST 35 U/L (15-37); Albumin 2.5 g/dL (3.4-5.0); Alkaline Phosphatase 96 U/L (46-116); Anion Gap 5.1 mmol/L (3-11); BUN 32 mg/dL (7-18); Bilirubin, Total 0.4 mg/dL (0.2-1.0); CO2 32.9 mmol/L (21.0-32.0); Calcium 8.9 mg/dL (8.5-10.1); Chloride 97 mmol/L (98-107); Estimated GFR 11.94 (mL/min/1.73m2); Glucose 177 mg/dL (74-106); Magnesium 1.9 mg/dL (1.8-2.4); Potassium 4.5 mmol/L (3.5-5.1); Sodium 135 mmol/L (136-145); Total Protein 6.9 g/dL (6.4-8.2); Troponin I < 0.05 ng/mL (<0.06)
[2020-06-18 12:38] LABS: CREATININE 4.93 mg/dL (0.70-1.30)
[2020-06-18] MEDS: Normal Saline 250 ML 500 ML IV (13:00)
--- NOTE | 2020-06-18 14:05 | NUR.NOTE ---
Nursing Note: Provider note, labs, EKG, DI report, faxed to the dialysis center. Estelle Patel
== END 2020-06-18 14:39 | disposition home or self-care (01) ==
PROVIDERS: Emergency Provider Registered Nurse Emergency; PCP Family Medicine
DX: R53.1 Weakness (principal); I13.2 Hypertensive heart and chronic kidney disease with heart failure and with stage 5 chronic kidney disease, or end stage renal disease; N18.6 End stage renal disease; Z99.2 Dependence on renal dialysis; I50.9 Heart failure, unspecified; E11.22 Type 2 diabetes mellitus with diabetic chronic kidney disease; Z79.4 Long term (current) use of insulin; R44.1 Visual hallucinations
CPT/HCPCS: 36415; 80053; 93005; 96360; 99285; 71045; 83735; 84484; 85025; 93010

== ENCOUNTER 2020-09-22 13:05 | Emergency (ER) | payer MEDICARE, MEDICAID, SELFPAY ==
[2020-09-22] VITALS (18 sets, daily range): BP systolic 171–194; BP diastolic 80–142; PULSE 77–82; RESP 13–19; TEMP 36.3; O2SAT 97–100
--- NOTE | 2020-09-22 13:00 | DI.CT_ITS ---
EXAM: CT HEAD - STROKE PROTOCOL CLINICAL HISTORY: Confusion, left sided weakness, dialysis patient. TECHNIQUE: Imaging Protocol: Axial computed tomography images with coronal and sagittal reformatted images were created and reviewed COMPARISON: CT CT HEAD CERVICAL SPINE WO from 05/30/2020 FINDINGS: Ventricles and Extra axial spaces: Normal in size and morphology for the patient's age. Hemorrhage: None. Cerebral parenchyma: There are areas of decreased attenuation in the white matter consistent with sma ll vessel ischemic disease. Old lacunar infarcts are seen in the right basal ganglia and right thala mus. Midline shift: None. Brainstem/Cerebellum: Normal. Calvarium: Normal. Visualized Paranasal sinuses/Mastoids: Clear. Soft Tissues: Unremarkable. IMPRESSION: 1. No acute intracranial process. 2. Results of this exam have been verbally communicated with provider. RADIATION DOSE DELIVERED: 1,415.1mGy.cm Total DLP DATA REPOSITORY: All CT scans at this facility are submitted to the National Radiology Data Registry (NRDR) Dose Index Registry (DIR) with the [employer] ([employer]). RADIATION OPTIMIZATION: All CT scans at this facility use at least one of these dose optimization te chniques: automated exposure control; mA and/or kV adjustment per patient size (includes targeted exa ms where dose is matched to clinical indication); or iterative reconstruction.
--- NOTE | 2020-09-22 13:00 | RT.EKG_ITS ---
APPROVED REPORT Exam: Resting ECG Patient Location: E HR:80 bpm ECG Measurements Heart Rate 80 AXIS MA 236 P 34 QRSd 98 QRS -51 QT 431 T 38 QTc 498 Conclusion Sinus rhythm...normal P axis, V-rate 60- 99 Prolonged MA interval...MA >220, V-rate 50- 90 Left anterior fascicular block...axis(240,-40), init forces inf Consider anteroseptal infarct...Q >30mS, dimin R, V1-V2 no stemi
--- NOTE | 2020-09-22 13:09 | NUR.NOTE ---
Nursing Note: Spoke to dialysis center who stated that the patient is typically A&O x3 & talkative. About an hour into his treatment and 45min DIRECTOR DATABASE his line became infilatrated & he suddenly started staring into space w/ pinpoint pupils-- nurse at center put her hand in front of his face & he did not respond to.
--- NOTE | 2020-09-22 13:16 | ED.GENADUL_ITS ---
Discharge Plan Disposition Patient Disposition: [facility] Condition: Stable Discharge Details Clinical Impression: Acute confusion Primary Care Provider: Jeyson Padgett ED Provider: Nesha Pope Home Meds and New Rx's Prescriptions: No Action lisinopril 5 mg tablet 40 mg PO DAILY RF: 0 atorvastatin 20 mg tablet 40 mg PO HS RF: 0 ferrous gluconate 324 mg (37.5 mg iron) Tablet 324 mg PO DAILY RF: 0 loratadine 10 mg Tablet 10 mg PO DAILY RF: 0 pantoprazole 40 mg Tablet,Delayed Release (Dr/Ec) 40 mg PO QAM RF: 0 camphor-menthol 0.5-0.5 % Lotion 1 applic TOPICAL TID RF: 0 Triphrocaps 1 mg capsule 1 cap PO DAILY RF: 0 clotrimazole 1 % cream 1 applic TOPICAL DAILY RF: 0 bupropion HCl [Wellbutrin SR] 150 mg Tablet Sustained-Release 12 Hr 150 mg PO DAILY RF: 0 levothyroxine 125 mcg Tablet 125 mcg PO QAM RF: 0 Eliquis 5 mg Tablet 5 mg PO BID RF: 0 insulin aspart U-100 [Novolog Flexpen U-100 Insulin] 100 unit/mL (3 mL) insulin pen 2 unit SUBCUT AC RF: 0 acidophilus-pectin, citrus 25 million cell -100 mg tablet 1.5 tab PO DAILY RF: 0 Discharge Data Discharge Date/Time-TO BE ENTERED AT DEPARTURE: 09/22/20 16:33 Medical Decision Making 64-year-old male presents to the ER via EMS from the dialysis clinic with reports of altered mental status during his dialysis treatment. Report from staff states that his dialysis shunt in his left upper extremity infiltrated patient then became altered mental status, pinpoint pupils, slurred speech, word salad he is normally at baseline alert and oriented x3. Upon questioning he is responsive to verbal stimulus, follows commands, he is alert and oriented to person only. He does have bilateral below the knee amputations his right stump is bloody with a what appears to be somewhat old laceration noted. He has a clamp noted on his dialysis shunt on the left upper extremity which was removed upon arrival. Bleeding is controlled at this time there is underlying swelling. Pressure dressing was applied. Orders in place for stroke protocol patient is on his way to CT at this time. BGL upon arrival is 81. TECHNIQUE: 2D digital imaging was performed. COMPARISON: CR XR CHEST 2V PA LATERAL from 03/26/2020 FINDINGS: The patient is status post below the knee amputation. No acute fracture or dislocation. The bones appear mildly osteopenic. No destructive or erosive changes are seen to suggest osteomyelitis radiographically. The joint spaces are well maintained. Vascular and other soft tissue calcifications are appreciated. IMPRESSION: 1. Status post right below the knee amputation. 2. No acute fracture or dislocation. 1424: Spoke with Joel with at [facility] transfer center, regarding transfer request he reports that they were pasty at this time. States that vascular and neurology to call back. 1425: [facility] transfer CTR contacted regarding patient, Spoke wit Dr. Payne with ED who is an accepting physician, Spoke with Neurologist regarding patient, and I was cut off. 1445: Spoke with Dr. Horta With Neurology at [facility]. 1452: Spoke with Praveena, his who states he does make urine on his own, she states last known normal was this am prior to Dialysis treatment. She states last night he was scratching his stump, he fell 2 weeks ago. COMPARISON: CT CT ABDOMEN PELVIS W from 06/08/[address] HEAD - STROKE PROTOCOL from 09/22/2020 FINDINGS: CT Head w: Ventricles and Extra axial spaces: Normal in size and morphology for the patient's age. Hemorrhage: None. Cerebral parenchyma: There are areas of decreased attenuation in the white matter consistent with small vessel ischemic disease. Old lacunar infarcts are seen in the right basal ganglia and right thalamus. Midline shift: None. Brainstem/Cerebellum: Normal. Calvarium: Normal. Visualized Paranasal sinuses/Mastoids: Clear. Soft Tissues: Unremarkable. Enhancement: Unremarkable. CTA Neck W: Common Carotid: Right: No dissection, occlusion or significant stenosis. Left: No dissection, occlusion or significant stenosis. External Carotid: Right: No occlusion or significant stenosis. Left: No occlusion or significant stenosis. Internal Carotid: Right: No dissection, occlusion or significant stenosis. Calcification at the origin of the right internal carotid artery. No significant stenosis. Left: No dissection, occlusion or significant stenosis. Calcification at the origin of the left ICA. No significant stenosis. Vertebral Artery: Right: Marked stenosis at the origin of the right vertebral artery. It shows normal caliber distally. Left: Marked stenosis at the origin of the left vertebral artery with normal caliber distally. Lung Apices: Normal. Bones: Degenerative changes. Soft Tissues: Normal. CTA Brain W: Internal Carotid Arteries: Petrous: Normal. Cavernous: Atherosclerosis but no significant stenosis. No occlusion or aneurysm. Cerebral: Normal. Anterior Cerebral Arteries: Right: No aneurysm, occlusion or significant stenosis. Left: No aneurysm, occlusion or significant stenosis. Middle Cerebral Arteries: Right: No aneurysm, occlusion or significant stenosis. Left: No aneurysm, occlusion or significant stenosis. Posterior cerebral Arteries: Right: No aneurysm, occlusion or significant stenosis. Left: No aneurysm, occlusion or significant stenosis. Vertebral Arteries: Right: No aneurysm, occlusion or significant stenosis. Left: No aneurysm, occlusion or significant stenosis. Basilar Artery: No aneurysm, occlusion or significant stenosis. IMPRESSION: 1. No large vessel occlusion or significant stenosis on the CT angiography of the head. 2. No acute intracranial process. No abnormal enhancement. 3. Marked stenosis (greater than 80 percent) of the origin of the right vertebral artery. 4. Marked stenosis at the origin of the left vertebral artery. 5. Findings were discussed with the emergency department on the date of the examination. 1601: Spoke With Dr. Garrett Radiologist, He reports Marked Athersclerotic Narrowing to the origins of Both Vetebral Arteries. 1603: Spoke with [facility] transfer center, regarding CTA results, Spoke with Dr. Horta, she has no further recommendations at this time. Transfer center is requesting labs being faxed. 1618: EMS here for transfer discussed patient discussion report given. Patient stable still aphasic. HPI General Mode of arrival: EMS . Date/Time Provider Initiated Documentation: 09/22/20 13:18 . Limitations to Documentation: altered mental status . Information obtained by: patient, EMS and RN notes reviewed . HPI Narrative: 64-year-old male presents to the ER via EMS from the dialysis clinic with reports of altered mental status during his dialysis treatment. Report from staff states that his dialysis shunt in his left upper extremity infiltrated patient then became altered mental status, pinpoint pupils, slurred speech, word salad he is normally at baseline alert and oriented x3. Upon questioning he is responsive to verbal stimulus, follows commands, he is alert and oriented to person only. He does have bilateral below the knee amputations his right stump is bloody with a what appears to be somewhat old laceration noted. He has a clamp noted on his dialysis shunt on the left upper extremity which was removed upon arrival. Bleeding is controlled at this time there is underlying swelling. Pressure dressing was applied. Orders in place for stroke protocol patient is on his way to CT at this time. BGL upon arrival is 81. Related Data Home Medications Medication Instructions Recorded Confirmed Eliquis 5 mg PO BID 06/08/19 09/22/20 bupropion HCl [Wellbutrin SR] 150 mg PO DAILY 06/08/19 09/22/20 levothyroxine 125 mcg PO QAM 06/08/19 09/22/20 lisinopril 5 mg tablet 40 mg PO DAILY tab 09/10/19 09/22/20 atorvastatin 40 mg PO HS 03/26/20 09/22/20 camphor-menthol 1 applic TOPICAL TID 03/26/20 09/22/20 ferrous gluconate 324 mg PO DAILY 03/26/20 09/22/20 loratadine 10 mg PO DAILY 03/26/20 09/22/20 pantoprazole 40 mg PO QAM 03/26/20 09/22/20 Triphrocaps 1 cap PO DAILY 05/30/20 09/22/20 clotrimazole 1 applic TOPICAL DAILY 06/18/20 09/22/20 acidophilus-pectin, citrus 1.5 tab PO DAILY 09/22/20 09/22/20 insulin aspart U-100 [Novolog 2 unit SUBCUT AC 09/22/20 09/22/20 Flexpen U-100 Insulin] Allergies Allergy/AdvReac Type Severity Reaction Status Date / Time pravastatin Allergy Intermediate Myalgias Unverified 09/22/20 15:06 General Stated Complaint: AMS/LOC DANIELE: 2 Review of Systems Unobtainable due to mental condition [facility] Medical History Amputation below knee Anemia Candidiasis of skin Cellulitis of lower limb CHF (congestive heart failure) CKD (chronic kidney disease) Degeneration of cervical intervertebral disc Depressive disorder Diarrhea End stage renal disease GERD (gastroesophageal reflux disease) HLD (hyperlipidemia) Hypertension Neuropathy Retention of urine Stasis dermatitis of lower extremity due to chronic peripheral vascular hypertension Type 2 diabetes mellitus Unilateral traumatic amputation of leg below knee with complication Surgical History History of thoracentesis Status post debridement Social History Smoking/Tobacco Use Status: Former Tobacco Use Smoking risk assessment performed?: Yes Alcohol Intake: former Drug use: Never Do you feel safe at home: Yes Do you feel safe in your relationship?: Yes Exam Narrative Exam Narrative: Constitutional: Oriented to person, follows commands. Appears stated age. Normal body habitus. Bilateral below the knee amputee. Appears confused Head: Normocephalic, no trauma. Eyes: Pupils PERRLA, appears equal, sluggish Red reflex noted, no following finger for EOMs. Eyelids symmetrical without lesions, discharge, or swelling. ENT: Bilateral TM's WNL, External ear normal to inspection, no mastoid TTP, swelling, or erythema, Nasal turbinates WNL, no nasal discharge. Normal dentition, Posterior pharynx WNL, no exudate. Chest: RRR, Normal S1, S2, distal pulses intact. Resp: Lungs clear to auscultation bilaterally, no wheezes, rales, or rhonchi. Musculoskeletal: Unable to assess gait, bilateral below the knee amputee, right stump is bloody, appears to be a more acute injury, old laceration with scab noted to the right lateral area. Abrasions noted. Skin: Capillary refill less than 2 sec. Neurologic: Slurred speech, aphasic word salad. Appears altered. Does follow commands. Turns to voice, NIH scale 14. Hematologic/Lymphatic: No ecchymosis, no lymphadenopathy. Course Vital Signs Vital signs: Vital Signs Pulse 82 09/22/20 13:04 Respiratory Rate 17 09/22/20 13:04 Blood Pressure 176/80 H 09/22/20 13:04 Pulse Oximetry 98 09/22/20 13:04 Pulse 82 09/22/20 13:04 Respiratory Rate 17 09/22/20 13:04 Blood Pressure 176/80 H 09/22/20 13:04 Blood Pressure Position Supine 09/22/20 13:04 Pulse Oximetry 98 09/22/20 13:04 Oxygen Delivery Method Room Air 09/22/20 13:04 Oxygen Flow Rate 0 09/22/20 13:04
--- NOTE | 2020-09-22 13:45 | DI.RAD_ITS ---
EXAM: XR KNEE RT 3V AP,LAT,GEMA CLINICAL HISTORY: Bleeding, Hx BKA, R/O injury. TECHNIQUE: 2D digital imaging was performed. COMPARISON: CR XR CHEST 2V PA LATERAL from 03/26/2020 FINDINGS: The patient is status post below the knee amputation. No acute fracture or dislocation. The bones a ppear mildly osteopenic. No destructive or erosive changes are seen to suggest osteomyelitis radiogr aphically. The joint spaces are well maintained. Vascular and other soft tissue calcifications are appreciated. IMPRESSION: 1. Status post right below the knee amputation. 2. No acute fracture or dislocation. DATA REPOSITORY: RADIATION DOSE DELIVERED:
[2020-09-22 13:59] LABS: Abs Immature Grans 0.03 10^3/uL (0.0-0.06); Absolute Basophil Count 0.07 10^3/uL (0.0-0.2); Absolute Eosinophil Count 1.77 10^3/uL (0.0-0.7); Absolute Lymphocyte Count 1.17 10^3/uL (1.2-3.4); Absolute Monocyte Count 0.66 10^3/uL (0.1-0.8); Absolute Neutrophil Count 4.84 10^3/uL (1.2-6.7); Basophils % 0.8; Eosinophils % 20.7; HCT 38.9 % (40.0-50.0); HGB 11.2 g/dL (13.5-17.5); Immature Grans % 0.4; Lymphocytes % 13.7; MCHC 28.8 % (32.0-36.0); MCV 90.5 fL (80-95); Monocytes % 7.7; Neutrophils % 56.7; Nucleated RBC 0 %; Platelet Count 188 10^3/uL (130-400); RDW 17.9 % (11.8-14.1); RDW-SD 58.6 fL; WBC 8.54 10^3/uL (4.4-10.8)
[2020-09-22 14:12] LABS: ALT 11 U/L (16-63); AST 21 U/L (15-37); Albumin 2.3 g/dL (3.4-5.0); Alkaline Phosphatase 121 U/L (46-116); Anion Gap 5.6 mmol/L (3-11); BUN 23 mg/dL (7-18); Bilirubin, Total 0.4 mg/dL (0.2-1.0); CO2 32.4 mmol/L (21.0-32.0); Calcium 8.9 mg/dL (8.5-10.1); Chloride 101 mmol/L (98-107); Estimated GFR 17.16 (mL/min/1.73m2); Glucose 80 mg/dL (74-106); Magnesium 1.9 mg/dL (1.8-2.4); Potassium 4.7 mmol/L (3.5-5.1); Sodium 139 mmol/L (136-145); Total Protein 7.2 g/dL (6.4-8.2)
[2020-09-22 14:14] LABS: CREATININE 3.6 mg/dL (0.70-1.30); Troponin I < 0.05 ng/mL (<0.06)
--- NOTE | 2020-09-22 15:00 | DI.CT_ITS ---
EXAM: CT BRAIN NECK CTA CLINICAL HISTORY: Aphasia, confusion. TECHNIQUE: Imaging Protocol: Axial CT angiography was performed with multi-slice acquisition and mu lti-planar and/or 3D reconstructions. CONTRAST MATERIAL: Intravenous: Omnipaque 350 Contrast volume:85 mL COMPARISON: CT CT ABDOMEN PELVIS W from 06/08/[address] HEAD - STROKE PROTOCOL from 09/22/2020 FINDINGS: CT Head w: Ventricles and Extra axial spaces: Normal in size and morphology for the patient's age. Hemorrhage: None. Cerebral parenchyma: There are areas of decreased attenuation in the white matter consistent with sma ll vessel ischemic disease. Old lacunar infarcts are seen in the right basal ganglia and right thala mus. Midline shift: None. Brainstem/Cerebellum: Normal. Calvarium: Normal. Visualized Paranasal sinuses/Mastoids: Clear. Soft Tissues: Unremarkable. Enhancement: Unremarkable. CTA Neck W: Common Carotid: Right: No dissection, occlusion or significant stenosis. Left: No dissection, occlusion or significant stenosis. External Carotid: Right: No occlusion or significant stenosis. Left: No occlusion or significant stenosis. Internal Carotid: Right: No dissection, occlusion or significant stenosis. Calcification at the origin of the right in ternal carotid artery. No significant stenosis. Left: No dissection, occlusion or significant stenosis. Calcification at the origin of the left ICA. No significant stenosis. Vertebral Artery: Right: Marked stenosis at the origin of the right vertebral artery. It shows normal caliber distall y. Left: Marked stenosis at the origin of the left vertebral artery with normal caliber distally. Lung Apices: Normal. Bones: Degenerative changes. Soft Tissues: Normal. CTA Brain W: Internal Carotid Arteries: Petrous: Normal. Cavernous: Atherosclerosis but no significant stenosis. No occlusion or aneurysm. Cerebral: Normal. Anterior Cerebral Arteries: Right: No aneurysm, occlusion or significant stenosis. Left: No aneurysm, occlusion or significant stenosis. Middle Cerebral Arteries: Right: No aneurysm, occlusion or significant stenosis. Left: No aneurysm, occlusion or significant stenosis. Posterior cerebral Arteries: Right: No aneurysm, occlusion or significant stenosis. Left: No aneurysm, occlusion or significant stenosis. Vertebral Arteries: Right: No aneurysm, occlusion or significant stenosis. Left: No aneurysm, occlusion or significant stenosis. Basilar Artery: No aneurysm, occlusion or significant stenosis. IMPRESSION: 1. No large vessel occlusion or significant stenosis on the CT angiography of the head. 2. No acute intracranial process. No abnormal enhancement. 3. Marked stenosis (greater than 80 percent) of the origin of the right vertebral artery. 4. Marked stenosis at the origin of the left vertebral artery. 5. Findings were discussed with the emergency department on the date of the examination. RADIATION DOSE DELIVERED: 1,390.85mGy.cm Total DLP DATA REPOSITORY: All CT scans at this facility are submitted to the National Radiology Data Registry (NRDR) Dose Index Registry (DIR) with the [employer] ([employer]). RADIATION OPTIMIZATION: All CT scans at this facility use at least one of these dose optimization te chniques: automated exposure control; mA and/or kV adjustment per patient size (includes targeted exa ms where dose is matched to clinical indication); or iterative reconstruction.
[2020-09-22 15:29] LABS: COVID-19 PCR Negative (Negative); Influenza A PCR Negative (Negative); Influenza B PCR Negative (Negative); RSV PCR Negative (Negative)
[2020-09-22] MEDS: Omnipaque 350 MG/ML 100 ML BTL IJ (15:41)
[2020-09-22] MEDS: Normal Saline - Diluent 50 ML VIAL IV (15:42)
[2020-09-22] MEDS: Normal Saline Flush 10 ML SYR IVP (15:43)
== END 2020-09-22 16:33 ==
PROVIDERS: Emergency Provider Registered Nurse Emergency; PCP Family Medicine
DX: R41.0 Disorientation, unspecified (principal); R47.01 Aphasia; R93.0 Abnormal findings on diagnostic imaging of skull and head, not elsewhere classified; T82.41XA Breakdown (mechanical) of vascular dialysis catheter, initial encounter; I12.0 Hypertensive chronic kidney disease with stage 5 chronic kidney disease or end stage renal disease; N18.6 End stage renal disease; E11.22 Type 2 diabetes mellitus with diabetic chronic kidney disease; Z99.2 Dependence on renal dialysis; Z79.4 Long term (current) use of insulin; Z03.818 Encounter for observation for suspected exposure to other biological agents ruled out
CPT/HCPCS: 36415; 36416; 70496; 70498; 73562; 80053; 82962; 93005; 99285; 70450; 81003; 83735; 84484; 85025; 93010; J3490